=== PATIENT | female | born 1980 | race African-American/Black ===

== ENCOUNTER 2017-06-29 14:23 | Emergency (ER) | payer SELFPAY ==
--- NOTE | 2017-06-29 15:35 | ER Document Report ---
HPI - HPI Pain Level: 3 Notes: Patient is a 37-year-old female who presents to the ED complaining of left first MTP joint pain that radiates up her foot and occasionally up to her leg 3 weeks. Patient states that she has pain with palpation and with ambulation. Patient has not noticed any redness or bruising. She is not aware of any previous injury. She has tried some [id number] meds with minimal relief. She denies any history of gout. Pain described as sharp/ache. Denies any headache, fever, URI, sore throat, chest pain, palpitations, syncope, cough, shortness of breath, wheeze, dyspnea, abdominal pain, nausea/vomiting/diarrhea, urinary retention, dysuria, hematuria, loss of control of bowel or bladder, numbness/tingling, muscle paralysis/weakness, or rash. - ROS Notes: REVIEW OF SYSTEMS: CONSTITUTIONAL : Denies fever, chills, or sweats. Denies recent illness. EENT: Denies eye, ear, throat, or mouth pain or symptoms. Denies nasal or sinus congestion or discharge. Denies throat, tongue, or mouth swelling or difficulty swallowing. CARDIOVASCULAR: Denies chest pain. Denies palpitations or racing or irregular heart beat. Denies ankle edema. RESPIRATORY: Denies cough, cold, or chest congestion. Denies shortness of breath, difficulty breathing, or wheezing. GASTROINTESTINAL: Denies abdominal pain or distention. Denies nausea, vomiting , or diarrhea. Denies blood in vomitus, stools, or per rectum. Denies black, tarry stools. Denies constipation. GENITOURINARY: Denies difficulty urinating, painful urination, burning, frequency, blood in urine, or discharge. MUSCULOSKELETAL: see hpi SKIN: Denies rash, lesions or sores. NEUROLOGICAL: Denies confusion or altered mental status. Denies passing out or loss of consciousness. Denies dizziness or lightheadedness. Denies headache. Denies problems with gait or speech. Denies sensory loss, numbness, or tingling. Denies seizures. ALL OTHER SYSTEMS REVIEWED AND NEGATIVE. Dictation was performed using [employer] voice recognition software - EENT EENT: DENIES: Sore Throat, Ear Pain, Eye problems - NEURO Neurology: DENIES: Headache - CARDIOVASCULAR Cardiovascular: DENIES: Chest pain - RESPIRATORY Respiratory: DENIES: Trouble Breathing, Coughing - GASTROINTESTINAL Gastrointestinal: DENIES: Abdominal Pain, Black / Bloody Stools - URINARY Urinary: DENIES: Dysuria, Urgency, Frequency - REPRODUCTIVE Reproductive: DENIES: : - MUSCULOSKELETAL Musculoskeletal: REPORTS: Extremity pain - numbness in left foot Past Medical History - Social History Smoking Status: Never Smoker Chew tobacco use (# tins/day): No Frequency of alcohol use: None Drug Abuse: None Family History: Reviewed & Not Pertinent Patient has suicidal ideation: No Patient has homicidal ideation: No - Past Medical History Cardiac Medical History: Reports: Hx Hypertension Renal/ Medical History: Denies: Hx Peritoneal Dialysis Past Surgical History: Reports: Hx Section - x3, Hx Cholecystectomy - Immunizations Immunizations up to date: Yes Hx Diphtheria, Pertussis, Tetanus Vaccination: Yes Vertical Provider Document - CONSTITUTIONAL Agree With Documented VS: Yes Notes: PHYSICAL EXAMINATION: GENERAL: Well-appearing, well-nourished and in no acute distress. LUNGS: Breath sounds clear to auscultation bilaterally and equal. No wheezes rales or rhonchi. HEART: Regular rate and rhythm without murmurs, rubs, gallops. Musculoskeletal: Left foot: FROM to passive/active. Strength 5+/5. + mild swelling/bunion to the 1st MTP joint. + tenderness to palp. N/V intact. Achilles intact. Ligamentous stable. No other bony tenderness. Yusra negative. No calf swelling or erythema. Extremities: No cyanosis, clubbing, or edema b/l. Peripheral pulses 2+. Capillary refill less than 3 seconds. NEUROLOGICAL: Normal speech, normal gait. Normal sensory, motor exams PSYCH: Normal mood, normal affect. SKIN: Warm, Dry, normal turgor, no rashes or lesions noted. - INFECTION CONTROL TRAVEL OUTSIDE OF THE [place] IN LAST 30 DAYS: No Course - Re-evaluation Re-evalutation: 06/29/17 16:15 Patient is an afebrile, well-hydrated, 37-year-old female who presents the ED with left first MTP joint pain, suspect inflammatory/bunion. Vitals are stable. PE is otherwise unremarkable for any neurovascular compromise, obvious tendon/ligament rupture, obvious fracture/dislocation, septic joint. X-ray was unremarkable for any acute pathology. I will send her home with a prescription for a steroid taper dose. Conservative measures for symptoms. Recheck with your PCM in 3-5 days. Consider consult with podiatry/orthopedics. Return to the ED with any worsening/concerning symptoms otherwise as reviewed discharge. Patient is in agreement. Discharge - Discharge Clinical Impression: Foot pain, left Condition: Stable Disposition: HOME, SELF-CARE Instructions: Exercises for the Foot Muscles ([facility]) Additional Instructions: Rest, Ice, Compression, Elevation Tylenol/ibuprofen as needed Light stretches daily Strength exercises as able Moist heat and massage may help F/u with your PCP in 3-5 days for a recheck Consider consult(s) with Orthopedics/podiatry for ongoing/worsening symptoms Return to the ED with any worsening symptoms and/or development of fever, headache, chest pain, palpitations, syncope, shortness of breath, trouble breathing, abdominal pain, n/v/d, muscle weakness/paralysis, numbness/tingling, swelling, redness, or other worsening symptoms that are concerning to you. Prescriptions: Prednisone [Deltasone 10 mg Tablet] 10 mg PO ASDIR PRN #21 tablet PRN Reason: Forms: Elevated Blood Pressure Referrals: [facility] [Provider Group] - Follow up as needed
--- NOTE | 2017-06-29 16:08 | RADIOLOGY REPORT (SQ) ---
EXAM DESCRIPTION: FOOT LEFT COMPLETE COMPLETED DATE/TIME: 06/29/2017 4:01 pm REASON FOR STUDY: left 1st MTP joint pain COMPARISON: None. NUMBER OF VIEWS: Three views. TECHNIQUE: AP, lateral and oblique without weight bearing radiographic images acquired of the left f oot. LIMITATIONS: None. FINDINGS: MINERALIZATION: Normal. BONES: No acute fracture or dislocation. No worrisome bone lesions. No significant osteophytes. JOINTS: No erosions. No laura-articular osteopenia. No chondrocalcinosis. SOFT TISSUES: No swelling. No calcifications. OTHER: No other significant finding. IMPRESSION: NEGATIVE STUDY OF THE LEFT FOOT. NO EXPLANATION FOR PAIN. TECHNICAL DOCUMENTATION: JOB ID: [id number] [employer]- All Rights Reserved
[2017-06-29 16:32] VITALS: BP 132/75
== END 2017-06-29 16:32 | disposition home or self-care (01) ==
LOC: ER 14:23
DX: M79.672 Pain in left foot (principal); M79.675 Pain in left toe(s); M79.605 Pain in left leg
CPT/HCPCS: 99283

== ENCOUNTER 2017-07-23 07:31 | Inpatient (IN) | payer SELFPAY ==
[2017-07-23] MEDS ORDERED: ONDANSETRON HCL INJ/PF 4 MG/2 ML SDV IV ONE ×2 (07:47→19:00)
[2017-07-23] MEDS ORDERED: MORPHINE SULFATE 10 MG/ML INJ IV ONE ×2 (07:47→08:43)
[2017-07-23] MEDS ORDERED: NORMAL SALINE 1000 ML 1,000 ML IV ONE (07:47)
--- NOTE | 2017-07-23 07:48 | ER Document Report ---
ED GI/ - General Chief Complaint: Possible Kidney Stone Stated Complaint: FLANK PAIN Time Seen by Provider: 07/23/17 07:44 Mode of Arrival: Ambulatory Information source: Patient Notes: Patient is a 37-year-old female who presents to the ER today for right upper quadrant abdominal pain/right flank pain that began 3 hours ago. She admits to multiple episodes of nausea and vomiting. She denies diarrhea. Patient has a history of kidney stones and states that that is what this feels like to her. She denies any pain prior to this but admits to about 2 weeks of urinary frequency. She denies any history of pancreatitis, states that she does not have her gallbladder any longer. She denies fevers or chills. TRAVEL OUTSIDE OF THE [place] IN LAST 30 DAYS: No - Related Data Allergies/Adverse Reactions: No Known Allergies Allergy (Verified 07/23/17 07:31) Past Medical History - General Information source: Patient - Social History Smoking Status: Unknown if Ever Smoked Family History: Reviewed & Not Pertinent - Past Medical History Cardiac Medical History: Reports: Hx Hypertension Renal/ Medical History: Denies: Hx Peritoneal Dialysis Past Surgical History: Reports: Hx Section - x3, Hx Cholecystectomy - Immunizations Immunizations up to date: Yes Hx Diphtheria, Pertussis, Tetanus Vaccination: Yes Review of Systems - Review of Systems Constitutional: No symptoms reported EENT: No symptoms reported Cardiovascular: No symptoms reported Respiratory: No symptoms reported Gastrointestinal: See HPI Genitourinary: See HPI Female Genitourinary: No symptoms reported Musculoskeletal: No symptoms reported Skin: No symptoms reported Hematologic/Lymphatic: No symptoms reported Neurological/Psychological: No symptoms reported Physical Exam - Vital signs Vitals: Temp Pulse Resp BP Pulse Ox 98.8 F 94 22 H 132/98 H 99 07/23/17 07:35 07/23/17 07:35 07/23/17 07:35 07/23/17 07:35 07/23/17 07:35 - Notes Notes: PHYSICAL EXAMINATION: GENERAL: Obviously uncomfortable, holding emesis bag, but in no acute distress. HEAD: Atraumatic, normocephalic. EYES: Pupils equal round and reactive to light, extraocular movements intact, sclera anicteric, conjunctiva are normal. NECK: Normal range of motion, supple without lymphadenopathy LUNGS: CTAB and equal. No wheezes rales or rhonchi. HEART: Regular rate and rhythm without murmurs ABDOMEN: Soft, epigastric, right upper quadrant, right sided tenderness. No guarding, no rebound BACK: no vertebral tenderness, normal ROM GI/: no CVA tenderness EXTREMITIES: Normal range of motion, no pitting edema. No cyanosis. NEUROLOGICAL: Cranial nerves grossly intact. Normal sensory/motor exams. PSYCH: Normal mood, normal affect. SKIN: Warm, Dry, normal turgor, no rashes or lesions noted Course - Re-evaluation Re-evalutation: 07/23/17 13:11 Lab work shows a lipase of 1100, liver enzymes normal, normal white blood cell count, patient feels better after pain medication and nausea medication, IV fluids. CAT scan reports no acute pathology including kidney stone, right upper quadrant ultrasound reports that patient has no gallbladder and nothing else abnormal on ultrasound. At this time patient has required multiple doses of pain medication frequently for comfort. Dr. Reid, hospitalist agrees to admission at this time with very elevated lipase. Patient denies any alcohol use and has never had pancreatitis before. - Vital Signs Vital signs: Temp Pulse Resp BP Pulse Ox 97.4 F 74 17 114/89 H 100 07/23/17 12:21 07/23/17 12:21 07/23/17 12:21 07/23/17 12:21 07/23/17 12:21 - Laboratory Result Diagrams: 07/23/17 07:47 07/23/17 07:47 Laboratory results interpreted by me: 07/23/17 07/23/17 07:47 07:47 RDW 14.2 H Chloride 108 H Alkaline Phosphatase 165 H Lipase 1124.7 H Discharge - Discharge Clinical Impression: Pancreatitis Qualifiers: Chronicity: acute Pancreatitis type: unspecified pancreatitis type Acute pancreatitis complication: unspecified Qualified Code(s): K85.90 - Acute pancreatitis without necrosis or infection, unspecified Condition: Stable Disposition: ADMITTED INPATIENT Admitting Provider: Hospitalist Unit Admitted: Medical Floor
[2017-07-23 08:17] LABS: HEMATOCRIT 41.2 % (36.0-47.0); HEMOGLOBIN 13.5 g/dL (12.0-15.5); MEAN CORPUSCULAR HGB CONC 32.9 g/dL (32.0-36.0); MEAN CORPUSCULAR VOLUME 91 fl (80-97); PLATELET COUNT 390 10^3/uL (150-450); RED BLOOD COUNT 4.51 10^6/uL (3.72-5.28); RED CELL DISTRIBUTION WIDTH 14.2 % (11.5-14.0); WHITE BLOOD COUNT 6.3 10^3/uL (4.0-10.5)
[2017-07-23 08:23] LABS: ALANINE AMINOTRANSFERASE 19 U/L (9-52); ALBUMIN 3.8 g/dL (3.5-5.0); ALKALINE PHOSPHATASE 165 U/L (38-126); ANION GAP 7 (5-19); ASPARTATE AMINO TRANSFERASE 19 U/L (14-36); BILIRUBIN,DIRECT 0.2 mg/dL (0.0-0.4); BILIRUBIN,TOTAL 0.5 mg/dL (0.2-1.3); BLOOD UREA NITROGEN 13 mg/dL (7-20); CALCIUM 9.6 mg/dL (8.4-10.2); CARBON DIOXIDE 24 mmol/L (22-30); CHLORIDE 108 mmol/L (98-107); GLUCOSE 90 mg/dL (75-110); LIPASE 1124.7 U/L (23-300); POTASSIUM 4.4 mmol/L (3.6-5.0); SODIUM 139.2 mmol/L (137-145); TOTAL PROTEIN 6.6 g/dL (6.3-8.2)
[2017-07-23 08:38] LABS: ABSOLUTE LYMPHOCYTES# (MANUAL) 2.5 10^3/uL (0.5-4.7); ABSOLUTE MONOCYTES # (MANUAL) 0.6 10^3/uL (0.1-1.4); BASOPHILS % (MANUAL) 0 % (0-2); EOSINOPHILS % (MANUAL) 3 % (0-6); LYMPHOCYTES % (MANUAL) 34 % (13-45); MONOCYTES % (MANUAL) 10 % (3-13); SEGMENTED NEUTROPHILS % (MAN) 47 % (42-78); TOTAL CELLS COUNTED 100
[2017-07-23 08:40] LABS: HYPOCHROMASIA SLIGHT; PLATELET COMMENT ADEQUATE; POLYCHROMASIA SLIGHT
[2017-07-23] MEDS ORDERED: KETOROLAC TROMETHAMINE INJ/PF 30 MG/1 ML SDV IV ONE (08:43)
[2017-07-23 09:20] LABS: APPEARANCE,URINE CLEAR; BILIRUBIN,URINE NEGATIVE (NEGATIVE); COLOR,URINE STRAW; GLUCOSE, URINE NEGATIVE (NEGATIVE); KETONES,URINE NEGATIVE (NEGATIVE); LEUKOCYTE ESTERASE,URINE NEGATIVE (NEGATIVE); NITRITE,URINE NEGATIVE (NEGATIVE); PROTEIN,URINE NEGATIVE (NEGATIVE); URINE SPECIFIC GRAVITY 1.009; UROBILINOGEN,URINE NEGATIVE mg/dL (<2.0)
--- NOTE | 2017-07-23 09:51 | RADIOLOGY REPORT (SQ) ---
EXAM DESCRIPTION: CT LTD RENAL STONE PROTOCOL ON COMPLETED DATE/TIME: 07/23/2017 9:39 am REASON FOR STUDY: flank pain COMPARISON: 01/23/2016 TECHNIQUE: CT scan of the abdomen and pelvis performed without intravenous or oral contrast. Images reviewed with lung, soft tissue, and bone windows. Reconstructed coronal and sagittal MPR images revi ewed. All images stored on PACS. All CT scanners at this facility use dose modulation, iterative reconstruction, and/or weight based d osing when appropriate to reduce radiation dose to as low as reasonably achievable (ALARA). [facility]: Dose Right [facility]: CareDose [facility]: Dose Right [facility]: Teradose 4D [facility]: Smart [place] RADIATION DOSE: CT Rad equipment meets quality standard of care and radiation dose reduction techniq ues were employed. CTDIvol: 9.5 mGy. DLP: 472 mGy-cm.mGy. LIMITATIONS: None. FINDINGS: LOWER CHEST: No significant findings. No nodules or infiltrates. NON-CONTRASTED LIVER, SPLEEN, ADRENALS: Evaluation limited by lack of IV contrast. No identified sign ificant masses. PANCREAS: No masses. No peripancreatic inflammatory changes. GALLBLADDER: No identified stones by CT criteria. No inflammatory changes to suggest cholecystitis. RIGHT KIDNEY AND URETER: No suspicious masses. Assessment limited by lack of IV contrast. No signif icant calcifications. No hydronephrosis or hydroureter. LEFT KIDNEY AND URETER: No suspicious masses. Assessment limited by lack of IV contrast. No signifi cant calcifications. No hydronephrosis or hydroureter. AORTA AND RETROPERITONEUM: No aneurysm. No retroperitoneal masses or adenopathy. BOWEL AND PERITONEAL CAVITY: No obvious masses or inflammatory changes. No free fluid. APPENDIX: Normal. PELVIS, BLADDER, AND ABDOMINAL WALL:Dominant follicles both ovaries. No abnormal masses. No free flu id. Bladder normal. BONES: No significant findings. OTHER: No other significant finding. IMPRESSION: NO SIGNIFICANT OR ACUTE PROCESS IN THE ABDOMEN OR PELVIS. COMMENT: Quality ID # [id number]: Final reports with documentation of one or more dose reduction techniques (e.g., Automated exposure control, adjustment of the mA and/or kV according to patient size, use of iterative reconstruction technique) TECHNICAL DOCUMENTATION: JOB ID: [id number] [employer]- All Rights Reserved
--- NOTE | 2017-07-23 11:06 | RADIOLOGY REPORT (SQ) ---
EXAM DESCRIPTION: U/S ABDOMEN LIMITED W/O DOP COMPLETED DATE/TIME: 07/23/2017 10:55 am REASON FOR STUDY: ruq pain, lipase elevated COMPARISON: CT PERFORMED EARLIER ON THE SAME DAY. TECHNIQUE: Dynamic and static grayscale images acquired of the abdomen and recorded on PACS. Additio nal selected color Doppler and spectral images recorded. LIMITATIONS: None. FINDINGS: PANCREAS: No masses. Visualized pancreatic duct normal caliber. LIVER: No masses. Echotexture normal. LIVER VASCULATURE: Normal directional flow of the main portal vein and hepatic veins. GALLBLADDER: Surgically absent. ULTRASOUND-DETECTED PETERSON'S SIGN: Negative. INTRAHEPATIC DUCTS AND COMMON DUCT: CBD and intrahepatic ducts normal caliber. No filling defects. INFERIOR VENA CAVA: Normal flow. AORTA: No aneurysm. RIGHT KIDNEY: Normal size. Normal echogenicity. No solid or suspicious masses. No hydronephrosis. No calcifications. PERITONEAL AND RIGHT PLEURAL SPACE: No ascites or effusions. OTHER: No other significant findings. IMPRESSION: Unremarkable right upper quadrant ultrasound status post cholecystectomy. No significan t change from preceding CT. TECHNICAL DOCUMENTATION: JOB ID: [id number] [employer]- All Rights Reserved
[2017-07-23] MEDS ORDERED: ACETAMINOPHEN 325 MG TABLET PO PRN (11:27)
[2017-07-23] MEDS ORDERED: IPRATROPIUM/ALBUTEROL 0.5-2.5 MG/3 ML AMPUL NEB PRN (11:27)
[2017-07-23] MEDS ORDERED: ONDANSETRON 4 MG TAB.RAPDIS PO PRN (11:27)
--- NOTE | 2017-07-23 12:01 | PDOC H&P ---
History of Present Illness Admission Date/PCP: July 23, 2017. She has no primary care doctor. Patient complains of: Right flank pain along with left upper quadrant abdominal pain. History of Present Illness: NARAYAN LUJAN is a 37 year old female Past Medical History Cardiac Medical History: Reports: Hypertension Pulmonary Medical History: Reports: None EENT Medical History: Reports: None Neurological Medical History: Reports: None Endocrine Medical History: Reports: None Renal/ Medical History: Reports: Nephrolithiasis Malignancy Medical History: Reports: None GI Medical History: Reports: None Musculoskeltal Medical History: Reports: None Skin Medical History: Reports: None Psychiatric Medical History: Reports: None Traumatic Medical History: Reports: None Hematology: Reports: None Infectious Medical History: Reports: None Past Surgical History Past Surgical History: Reports: Section - x3, Cholecystectomy Social History Information Source: Patient Lives with: Family Smoking Status: Never Smoker Frequency of Alcohol Use: Rare Hx Recreational Drug Use: No Drugs: None Hx Prescription Drug Abuse: No - Advance Directive Resuscitation Status: Full Code Family History Family History: Mother 60 alive and has lupus. Father at age 63 from complications of chronic renal failure. Parental Family History Reviewed: Yes Children Family History Reviewed: No Sibling(s) Family History Reviewed.: No Medication/Allergy Home Medications: Metoprolol Tartrate [Lopressor] 25 mg PO BID 03/23/15 Hydrocodone/Acetaminophen [[place] 5-325 mg Tablet] 1 tab PO Q6H PRN #10 tablet Phenol/Sodium Phenolate [Chloraseptic Sore Throat [place] 177 ml] 2 sprays MM Q2HP PRN #1 bottle 03/27/15 Prednisone [Deltasone 10 mg Tablet] 10 mg PO ASDIR PRN #21 tablet 03/27/15 Promethazine HCl [Phenergan 25 mg Tablet] 25 mg PO Q6H PRN #15 tablet 06/07/15 Azithromycin [Zithromax 250 mg Tablet] 250 mg PO ASDIR PRN #6 tablet 10/20/15 Ibuprofen [Motrin 600 mg Tablet] 600 mg PO Q8HP PRN #60 tablet 10/20/15 Prednisone [Deltasone 20 mg Tablet] 3 tab PO DAILY 5 Days tablet 10/20/15 Hydrocodone/Acetaminophen [[place] 5-325 mg Tablet] 1 tab PO Q4 PRN #20 tablet 07/ 23/16 Ondansetron [Zofran Odt 4 mg Tablet] 1 - 2 tab PO Q4HP PRN #30 tab.rapdis Tamsulosin HCl [Flomax 0.4 mg Cap.sr] 0.4 mg PO DAILY #7 cap.sr.24h 01/23/16 Prednisone [Deltasone 10 mg Tablet] 10 mg PO ASDIR PRN #21 tablet 06/29/17 Allergies/Adverse Reactions: No Known Allergies Allergy (Verified 07/23/17 07:31) Review of Systems Constitutional: ABSENT: chills, fever(s), headache(s), weight gain, weight loss Eyes: ABSENT: visual disturbances Ears: ABSENT: hearing changes Cardiovascular: ABSENT: chest pain, dyspnea on exertion, edema, orthropnea, palpitations Respiratory: ABSENT: cough, hemoptysis Gastrointestinal: PRESENT: abdominal pain, bloating, nausea, vomiting. ABSENT: coffee ground emesis, diarrhea, heartburn, melena Genitourinary: ABSENT: dysuria, hematuria Musculoskeletal: ABSENT: joint swelling Integumentary: ABSENT: rash, wounds Neurological: ABSENT: abnormal gait, abnormal speech, confusion, dizziness, focal weakness, syncope Psychiatric: ABSENT: anxiety, depression, homidical ideation, suicidal ideation Endocrine: ABSENT: cold intolerance, heat intolerance, polydipsia, polyuria Hematologic/Lymphatic: ABSENT: easy bleeding, easy bruising Physical Exam Vital Signs: Temp Pulse Resp BP Pulse Ox 98.8 F 94 22 H 132/98 H 99 07/23/17 07:35 07/23/17 07:35 07/23/17 07:35 07/23/17 07:35 07/23/17 07:35 Intake & Output 07/22/17 07/23/17 07/24/17 06:59 06:59 06:59 Weight 70.5 kg General appearance: PRESENT: no acute distress, well-developed, well-nourished Head exam: PRESENT: atraumatic, normocephalic Eye exam: PRESENT: conjunctiva pink, EOMI, PERRLA. ABSENT: scleral icterus Ear exam: PRESENT: normal external ear exam Mouth exam: PRESENT: moist, tongue midline Neck exam: ABSENT: carotid bruit, JVD, lymphadenopathy, thyromegaly Respiratory exam: PRESENT: clear to auscultation lee. ABSENT: rales, rhonchi, wheezes Cardiovascular exam: PRESENT: RRR. ABSENT: diastolic murmur, rubs, systolic murmur Pulses: PRESENT: normal dorsalis pedis pul GI/Abdominal exam: PRESENT: normal bowel sounds, soft, tenderness - Moderate left upper quadrant tenderness.. ABSENT: distended, guarding, mass, organolmegaly, rebound Rectal exam: PRESENT: deferred Extremities exam: ABSENT: calf tenderness, clubbing, pedal edema Neurological exam: PRESENT: alert, awake, oriented to person, oriented to place , oriented to time, oriented to situation, CN II-XII grossly intact. ABSENT: motor sensory deficit Psychiatric exam: PRESENT: appropriate affect Skin exam: PRESENT: dry, intact, warm. ABSENT: cyanosis, rash Results Laboratory Results: 07/23/17 07:47 07/23/17 07:47 07/23/17 07/23/17 07/23/17 07:47 07:47 08:35 WBC 6.3 RBC 4.51 Hgb 13.5 Hct 41.2 MCV 91 MCH 30.0 MCHC 32.9 RDW 14.2 H Plt Count 390 Seg Neutrophils % Not Reportable Lymphocytes % Not Reportable Monocytes % Not Reportable Eosinophils % Not Reportable Basophils % Not Reportable Absolute Neutrophils Not Reportable Absolute Lymphocytes Not Reportable Absolute Monocytes Not Reportable Absolute Eosinophils Not Reportable Absolute Basophils Not Reportable Sodium 139.2 Potassium 4.4 Chloride 108 H Carbon Dioxide 24 Anion Gap 7 BUN 13 Creatinine 1.00 Est GFR ( Amer) > 60 Est GFR (Non-Af Amer) > 60 Glucose 90 Calcium 9.6 Total Bilirubin 0.5 AST 19 ALT 19 Alkaline Phosphatase 165 H Total Protein 6.6 Albumin 3.8 Lipase 1124.7 H Urine Color STRAW Urine Appearance CLEAR Urine pH 6.0 Ur Specific [place] 1.009 Urine Protein NEGATIVE Urine Glucose (UA) NEGATIVE Urine Ketones NEGATIVE Urine Blood NEGATIVE Urine Nitrite NEGATIVE Ur Leukocyte Esterase NEGATIVE Urine RBC (Auto) 0 Impressions: Limited or Localized CT 07/23/17 07:48 IMPRESSION: NO SIGNIFICANT OR ACUTE PROCESS IN THE ABDOMEN OR PELVIS. Abdomen Ultrasound 07/23/17 10:08 IMPRESSION: Unremarkable right upper quadrant ultrasound status post cholecystectomy. No significant change from preceding CT. Assessment & Plan - Diagnosis (1) Pancreatitis Qualifiers: Chronicity: acute Pancreatitis type: unspecified pancreatitis type Acute pancreatitis complication: unspecified Qualified Code(s): K85.90 - Acute pancreatitis without necrosis or infection, unspecified Is this a current diagnosis for this admission?: Yes Plan: The etiology of her pancreatitis is unclear. She does not have any significant alcohol use. She has had her gallbladder removed and has essentially normal LFTs. Will check try glyceride levels in the morning. If the triglycerides are normal we will proceed with an MRCP if she continues to have symptoms. Will give IV fluids and IV narcotics. (2) Nephrolithiasis Is this a current diagnosis for this admission?: Yes Plan: She has a history of nephrolithiasis but has no hematuria and it is unlikely that any nephrolithiasis is the cause for the symptoms. - Time Time Spent: 50 to 70 Minutes - Inpatient Certification Medical Necessity: Need For IV Fluids, Need for Pain Control
[2017-07-23] MEDS: NORMAL SALINE 1000 ML 1,000 ML IV PRN ×3 (12:03→21:24)
[2017-07-23] MEDS: ONDANSETRON HCL INJ/PF 4 MG/2 ML SDV IV PRN ×2 (13:43→18:08)
[2017-07-23] MEDS: MORPHINE SULFATE 10 MG/ML INJ IV PRN (15:29)
[2017-07-23] MEDS: KETOROLAC TROMETHAMINE INJ/PF 30 MG/1 ML SDV IV PRN (20:24)
[2017-07-23] MEDS: FAMOTIDINE 20 MG TABLET PO SCH (21:22)
[2017-07-24] MEDS: MORPHINE SULFATE 10 MG/ML INJ IV PRN (00:21)
[2017-07-24] MEDS: ONDANSETRON HCL INJ/PF 4 MG/2 ML SDV IV PRN ×2 (00:21→12:36)
[2017-07-24] MEDS: KETOROLAC TROMETHAMINE INJ/PF 30 MG/1 ML SDV IV PRN (06:42)
[2017-07-24 08:25] LABS: HEMATOCRIT 42.1 % (36.0-47.0); HEMOGLOBIN 13.7 g/dL (12.0-15.5); MEAN CORPUSCULAR HGB CONC 32.6 g/dL (32.0-36.0); MEAN CORPUSCULAR VOLUME 92 fl (80-97); PLATELET COUNT 345 10^3/uL (150-450); RED BLOOD COUNT 4.59 10^6/uL (3.72-5.28); RED CELL DISTRIBUTION WIDTH 14.2 % (11.5-14.0)
[2017-07-24 08:42] LABS: ANION GAP 10 (5-19); BLOOD UREA NITROGEN 7 mg/dL (7-20); CALCIUM 8.8 mg/dL (8.4-10.2); CARBON DIOXIDE 22 mmol/L (22-30); CHLORIDE 108 mmol/L (98-107); CHOLESTEROL 257.76 mg/dL (0-200); GLUCOSE 74 mg/dL (75-110); LIPASE 133.4 U/L (23-300); POTASSIUM 4.2 mmol/L (3.6-5.0); SODIUM 139.6 mmol/L (137-145); TRIGLYCERIDES 95 mg/dL (<150)
[2017-07-24 08:53] LABS: DIRECT LDL 167 mg/dL (<100)
[2017-07-24 09:13] VITALS: BP 120/77
[2017-07-24] MEDS ORDERED: OXYCODONE HCL IR 5 MG TABLET PO PRN (09:50)
[2017-07-24] MEDS ORDERED: ENOXAPARIN SODIUM INJ 40 MG/0.4 ML DISP.SYRIN SUBCUT SCH (10:00)
[2017-07-24] MEDS: FAMOTIDINE 20 MG TABLET PO SCH (10:25)
--- NOTE | 2017-07-24 15:28 | PDOC DISCHARGE SUMMARY ---
General - Admit/Disc Date/PCP Admission Date/Primary Care Provider: 07/23/17 11:48 Discharge Date: 07/24/17 - Discharge Diagnosis (1) Pancreatitis Is this a current diagnosis for this admission?: Yes Summary: Possibly secondary to recent steroid use. (2) Nephrolithiasis Is this a current diagnosis for this admission?: Yes - Additional Information Resuscitation Status: Full Code Discharge Diet: Regular Discharge Activity: Activity As Tolerated Prescriptions: Ondansetron [Zofran Odt 4 mg Tablet] 4 mg PO Q6HP PRN #20 tab.rapdis PRN Reason: Oxycodone HCl [Oxy-Ir 5 mg Tablet] 5 mg PO Q6HP PRN #20 tablet PRN Reason: Home Medications: Ondansetron [Zofran Odt 4 mg Tablet] 4 mg PO Q6HP PRN #20 tab.rapdis 07/24/17 Oxycodone HCl [Oxy-Ir 5 mg Tablet] 5 mg PO Q6HP PRN #20 tablet 07/24/17 History of Present Illness History of Present Illness: NARAYAN LUJAN is a 37 year old female who presented with abdominal pain and was found to have pancreatitis. Patient does not drink alcohol and has had a cholecystectomy. She however has had a recent course of steroids. She is admitted for treatment of acute pancreatitis. Hospital Course Hospital Course: 37-year-old female who has a history of having nephrolithiasis who presented with right flank pain as well as left upper quadrant abdominal pain. She initially thought this was secondary to kidney stones and did not seek medical care. As the pain continue she came to the hospital and was found to have pancreatitis. Patient does not drink alcohol and has had a cholecystectomy. She marked liver function tests and did relate that she had a recent course of prednisone. It is felt that it was possibly steroids as the cause for her acute pancreatitis. She was made n.p.o. given IV fluids and IV narcotics. Patient had quick resolution of her pain. On the day of discharge she was given a diet was able to tolerate that with minimal pain. Because of this it was felt that she was stable to be discharged to home. Physical Exam Vital Signs: Temp Pulse Resp BP Pulse Ox 98.7 F 67 18 120/77 100 07/24/17 15:08 07/24/17 15:08 07/24/17 15:08 07/24/17 08:31 07/24/17 15:08 Intake & Output 07/23/17 07/24/17 07/25/17 06:59 06:59 06:59 Intake Total 0 Balance 0 Weight 71.6 kg General appearance: PRESENT: no acute distress Eye exam: PRESENT: conjunctiva pink. ABSENT: scleral icterus Mouth exam: PRESENT: moist, tongue midline Neck exam: ABSENT: JVD Respiratory exam: PRESENT: clear to auscultation lee. ABSENT: rales, rhonchi, wheezes Cardiovascular exam: PRESENT: RRR. ABSENT: diastolic murmur, rubs, systolic murmur GI/Abdominal exam: PRESENT: normal bowel sounds, soft. ABSENT: distended, guarding, mass, organolmegaly, rebound, tenderness Extremities exam: ABSENT: calf tenderness, clubbing, pedal edema Neurological exam: PRESENT: alert, awake, oriented to person, oriented to place , oriented to time, oriented to situation, CN II-XII grossly intact. ABSENT: motor sensory deficit Psychiatric exam: PRESENT: appropriate affect Skin exam: PRESENT: dry, intact, warm. ABSENT: cyanosis, rash Results Laboratory Results: 07/24/17 08:10 07/24/17 08:10 07/24/17 07/24/17 08:10 08:10 WBC 6.0 RBC 4.59 Hgb 13.7 Hct 42.1 MCV 92 MCH 30.0 MCHC 32.6 RDW 14.2 H Plt Count 345 Sodium 139.6 Potassium 4.2 Chloride 108 H Carbon Dioxide 22 Anion Gap 10 BUN 7 Creatinine 0.91 Est GFR ( Amer) > 60 Est GFR (Non-Af Amer) > 60 Glucose 74 L Calcium 8.8 Triglycerides 95 Cholesterol 257.76 H LDL Cholesterol Direct 167 H VLDL Cholesterol 19.0 HDL Cholesterol 66 Lipase 133.4 Impressions: Limited or Localized CT 07/23/17 07:48 IMPRESSION: NO SIGNIFICANT OR ACUTE PROCESS IN THE ABDOMEN OR PELVIS. Abdomen Ultrasound 07/23/17 10:08 IMPRESSION: Unremarkable right upper quadrant ultrasound status post cholecystectomy. No significant change from preceding CT. Qualifiers PATEINT BEING DISCHARGED WITH ANY OF THE FOLLOWING DIAGNOSIS?: No Plan Discharge Plan: Patient will follow up with her primary care in 2 weeks. Patient is discharged home in stable condition. Time Spent: Less than 30 Minutes
== END 2017-07-24 16:54 | disposition home or self-care (01) | DRG 440 ==
LOC: ER 07:31 → EH 11:48 → 2N 14:35
PROVIDERS: ADMIT Internal Medicine; ATTEND Internal Medicine
DX: K85.90 Acute pancreatitis without necrosis or infection, unspecified (principal); N20.0 Calculus of kidney; I10 Essential (primary) hypertension; Z79.52 Long term (current) use of systemic steroids; Z79.899 Other long term (current) drug therapy
CPT/HCPCS: 36415; 76380; 76705; 80048; 80053; 80061; 81001; 81025; 83690; 85025; 85027; 96361; 96374; 96375; 96376; 99285; J1650; J1885; J2270; J2405; J7030

== ENCOUNTER 2017-07-31 08:45 | Emergency (ER) | payer SELFPAY ==
[2017-07-31] MEDS ORDERED: ONDANSETRON 4 MG TAB.RAPDIS PO ONE (09:32)
[2017-07-31] MEDS ORDERED: NORMAL SALINE 1000 ML 1,000 ML IV ONE (09:32)
[2017-07-31] MEDS ORDERED: MORPHINE SULFATE 10 MG/ML INJ IV ONE (09:32)
--- NOTE | 2017-07-31 09:33 | ER Document Report ---
ED General - General Chief Complaint: Back Pain Stated Complaint: FLANK PAIN Time Seen by Provider: 07/31/17 09:19 Notes: 37-year-old lady presents with 6 hours of severe upper abdominal pain radiating to the back, with nausea but no vomiting. No diarrhea. Pain is similar to prior pancreatitis. She was discharged last week after admission for pancreatitis. She does not have a gallbladder. She denies being told to do a liquid diet but is taking pain meds at home. Chest pain. TRAVEL OUTSIDE OF THE [place] IN LAST 30 DAYS: No - Related Data Allergies/Adverse Reactions: No Known Allergies Allergy (Verified 07/31/17 08:48) Past Medical History - General Information source: Patient - Social History Smoking Status: Unknown if Ever Smoked Family History: Reviewed & Not Pertinent - Past Medical History Cardiac Medical History: Reports: Hx Hypertension Renal/ Medical History: Denies: Hx Peritoneal Dialysis Past Surgical History: Reports: Hx Section - x3, Hx Cholecystectomy - Immunizations Immunizations up to date: Yes Hx Diphtheria, Pertussis, Tetanus Vaccination: Yes Review of Systems - Review of Systems Notes: REVIEW OF SYSTEMS GEN: Denies fever, chills, weight loss ENT: Denies sore throat, nasal discharge, ear pain EYES: Denies blurry vision, eye pain, discharge CV: Denies chest pain, palpitations, edema RESP: Denies cough, shortness of breath, wheezing GI: Abdominal pain and nausea MSK: Denies joint pain/swelling, edema, SKIN: Denies rash, skin lesions LYMPH: Denies swollen glands/lymph nodes NEURO: Denies headache, focal weakness or numbness, dizziness PSYCH: Denies depression, suicidal or homicidal ideation PHYSICAL EXAMINATION General: Appears in pain. Tearful. Head: Atraumatic, normocephalic ENT: Mouth normal, oropharynx moist, no exudates or tonsillar enlargement Eyes: Conjunctiva normal, pupils equal, lids normal Neck: No JVD, supple, no guarding CVS: Normal rate, regular rhythm, no murmurs Resp: No resp distress, equal and normal breath sounds bilaterally GI: Nondistended, soft, minimal upper abdominal tenderness to palpation, no rebound or guarding Ext: No deformities, no edema, normal range of motion in upper and lower ext Back: No CVA or midline TTP Skin: No rash, warm Lymphatic: No lymphadeopathy noted Neuro: Awake, alert. Face symmetric. GCS 15. Physical Exam - Vital signs Vitals: Temp Pulse Resp BP Pulse Ox 98.8 F 117 H 23 H 123/82 99 07/31/17 08:51 07/31/17 08:51 07/31/17 08:51 07/31/17 08:51 07/31/17 08:51 Course - Re-evaluation Re-evalutation: 07/31/17 09:33 37-year-old lady with recurrent upper abdominal pain concerning for repeat pancreatitis. Doubt gallstone pancreatitis given that she has no gallbladder. We will treat with morphine and fluids, check labs including lipase. 07/31/17 09:52 Reviewing the patient's chart, she had a negative CT and ultrasound done on her last admission, which was 8 days ago. Her pancreatitis was thought due to steroid use and she has now stopped using steroids. 07/31/17 12:37 His labs show a lipase of 600. She peaked over thousand and was at the 100 range when discharged. I think she is flaring up because of diet noncompliance. She has a repeat exam done which was nontender and she felt much better after round of medicine and some fluids. We discussed outpatient management of pancreatitis including narcotic pain relievers Zofran and p.o. hydration. I discussed in detail a liquid diet for her. She will follow up with her primary care and is comfortable going home. Insert discharge I have discussed with the patient there likely diagnosis, aftercare plan, follow-up plans and my usual and customary return precautions. They verbalized understanding of this. - Vital Signs Vital signs: Temp Pulse Resp BP Pulse Ox 98.8 F 117 H 17 108/56 L 97 07/31/17 08:51 07/31/17 08:51 07/31/17 11:01 07/31/17 11:00 07/31/17 11:01 - Laboratory Result Diagrams: 07/31/17 10:34 Laboratory results interpreted by me: 07/31/17 07/31/17 07/31/17 09:48 10:34 10:34 RDW 14.1 H ALT 96 H Alkaline Phosphatase 174 H Creatine Kinase 183 H Lipase 601.7 H Urine Blood MODERATE H Discharge - Discharge Clinical Impression: Pancreatitis Qualifiers: Chronicity: acute Pancreatitis type: unspecified pancreatitis type Acute pancreatitis complication: unspecified Qualified Code(s): K85.90 - Acute pancreatitis without necrosis or infection, unspecified Condition: Good Disposition: HOME, SELF-CARE Instructions: Oral Narcotic Medication ([facility]) Additional Instructions: You have been diagnosed with pancreatitis. Please follow a liquid diet. Please take meds as prescribed. Please follow-up with Dr. Willis as scheduled. If you get worse pain or vomiting please return to the ER. Prescriptions: Ondansetron HCl [Zofran 4 mg Tablet] 1 - 2 tab PO Q4H PRN #10 tablet PRN Reason: Oxycodone HCl/Acetaminophen [Percocet 5-325 mg Tablet] 1 - 2 tab PO Q4H PRN #15 tablet PRN Reason:
[2017-07-31 10:15] LABS: APPEARANCE,URINE SLIGHTLY-CLOUDY; BILIRUBIN,URINE NEGATIVE (NEGATIVE); COLOR,URINE YELLOW; GLUCOSE, URINE NEGATIVE (NEGATIVE); KETONES,URINE NEGATIVE (NEGATIVE); LEUKOCYTE ESTERASE,URINE NEGATIVE (NEGATIVE); NITRITE,URINE NEGATIVE (NEGATIVE); PROTEIN,URINE NEGATIVE (NEGATIVE); URINE SPECIFIC GRAVITY 1.013; UROBILINOGEN,URINE NEGATIVE mg/dL (<2.0)
[2017-07-31 10:57] LABS: ABSOLUTE LYMPHOCYTES (AUTO) 1.6 10^3/uL (0.5-4.7); ABSOLUTE MONOCYTES (AUTO) 0.4 10^3/uL (0.1-1.4); ABSOLUTE NEUT (AUTO) 2.3 10^3/uL (1.7-8.2); BASOPHILS % (AUTO) 0.1 % (0-2); EOSINOPHILS % (AUTO) 0.7 % (0-6); HEMATOCRIT 38.6 % (36.0-47.0); HEMOGLOBIN 12.9 g/dL (12.0-15.5); LYMPHOCYTES % (AUTO) 35.4 % (13-45); MEAN CORPUSCULAR HEMOGLOBIN 30.3 pg (27.0-33.4); MEAN CORPUSCULAR HGB CONC 33.5 g/dL (32.0-36.0); MEAN CORPUSCULAR VOLUME 90 fl (80-97); MONOCYTES % (AUTO) 10.2 % (3-13); PLATELET COUNT 382 10^3/uL (150-450); RED BLOOD COUNT 4.28 10^6/uL (3.72-5.28); RED CELL DISTRIBUTION WIDTH 14.1 % (11.5-14.0); SEGMENTED NEUTROPHILS % (AUTO) 53.6 % (42-78); TOTAL CELLS COUNTED % (AUTO) 100 %; WHITE BLOOD COUNT 4.4 10^3/uL (4.0-10.5)
[2017-07-31 11:15] LABS: ALANINE AMINOTRANSFERASE 96 U/L (9-52); ALBUMIN 3.8 g/dL (3.5-5.0); ALKALINE PHOSPHATASE 174 U/L (38-126); ASPARTATE AMINO TRANSFERASE 36 U/L (14-36); BILIRUBIN,DIRECT 0.2 mg/dL (0.0-0.4); BILIRUBIN,TOTAL 0.4 mg/dL (0.2-1.3); CREATINE KINASE 183 U/L (30-135); LIPASE 601.7 U/L (23-300); TOTAL PROTEIN 6.7 g/dL (6.3-8.2)
--- NOTE | 2017-07-31 12:52 | EKG REPORT ---
SEVERITY:- BORDERLINE ECG - SINUS TACHYCARDIA WITH IRREGULAR RATE 87-117 : Confirmed by: Lior Trujillo MD 31-Jul-2017 12:51:13
[2017-07-31 13:12] VITALS: BP 130/71
== END 2017-07-31 13:12 | disposition home or self-care (01) ==
LOC: ER 08:45
DX: K85.90 Acute pancreatitis without necrosis or infection, unspecified (principal); R10.10 Upper abdominal pain, unspecified; R11.0 Nausea; I10 Essential (primary) hypertension; Z90.49 Acquired absence of other specified parts of digestive tract
CPT/HCPCS: 93005; 99284; 96361; 96374; 36415; 82550; 83690; 85025; 81025; 80076; 81001; 93010; S0119; J2270; J7030

== ENCOUNTER 2018-01-31 06:36 | Emergency (ER) | payer SELFPAY ==
--- NOTE | 2018-01-31 07:15 | ER Document Report ---
ED General - General Chief Complaint: Headache Stated Complaint: HEADACHE Time Seen by Provider: 01/31/18 07:14 Mode of Arrival: Ambulatory Information source: Patient TRAVEL OUTSIDE OF THE [place] IN LAST 30 DAYS: No - HPI Onset: Other - x 1 month Onset/Duration: Intermittent Quality of pain: Throbbing Severity: Moderate Pain Level: 3 Associated symptoms: Headache Similar symptoms previously: Yes Recently seen / treated by doctor: No Notes: 37-year-old female presents to the ED with complaints of tension headache for the last month. States worse in the morning. Change in level consciousness or neuro changes. Patient is renting an apartment, denies having carbon monoxide detectors. States headache feels exactly similar to her previous headaches, denies any photophobia or phonophobia. 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 Denies fevers, chills, chest pain, palpitations, shortness of breath, dyspnea, nausea, vomiting, diarrhea, abdominal pain, hematuria,blurred vision, double vision, loss of vision, speech changes, LH, dizziness, syncope, wheezing, ST, URI, neck pain, weakness, bowel or bladder dysfunction, saddle anesthesia, numbness or tingling in bilateral upper or lower extremities equally, muscle paralysis, weakness in bilateral upper or lower extremities equally or rash. Denies IV drug use. - Related Data Allergies/Adverse Reactions: No Known Allergies Allergy (Verified 01/31/18 06:56) Past Medical History - Social History Smoking Status: Never Smoker Chew tobacco use (# tins/day): No Frequency of alcohol use: None Drug Abuse: None Family History: Reviewed & Not Pertinent Patient has suicidal ideation: No Patient has homicidal ideation: No - Past Medical History Cardiac Medical History: Reports: Hx Hypertension Neurological Medical History: Reports: Hx Migraine Renal/ Medical History: Denies: Hx Peritoneal Dialysis Past Surgical History: Reports: Hx Section - x3, Hx Cholecystectomy - Immunizations Immunizations up to date: Yes Hx Diphtheria, Pertussis, Tetanus Vaccination: Yes Physical Exam - Vital signs Vitals: Temp Pulse Resp BP Pulse Ox 98.1 F 85 16 128/97 H 97 01/31/18 06:44 01/31/18 06:44 01/31/18 06:44 01/31/18 06:44 01/31/18 06:44 - Notes Notes: PHYSICAL EXAMINATION: GENERAL: Well-appearing, well-nourished and in no acute distress. HEAD: Atraumatic, normocephalic. EYES: Pupils equal round and reactive to light, extraocular movements intact, conjunctiva are normal. ENT: Nares patent, oropharynx clear without exudates. Moist mucous membranes. NECK: Normal range of motion, supple without lymphadenopathy LUNGS: Breath sounds clear to auscultation bilaterally and equal. No wheezes rales or rhonchi. HEART: Regular rate and rhythm without murmurs ABDOMEN: Soft, nontender, nondistended abdomen. No guarding, no rebound. No masses appreciated. Female : deferred Musculoskeletal: Normal range of motion, no pitting or edema. No cyanosis. NEUROLOGICAL: PERRLA, EOMI. Full motor and sensory function throughout. Proofsheet Corrector + 2 equal bilaterally in BUE. Tongue midline. No pronator drift. No ataxia. Neck with APROM. Raises eyebrows. Strength is 5 out of 5 in bilateral upper and lower extremities equally.Speaks in full sentences. No weakness on one side. Romberg gait steady able to walk straight line. Able to recall 5 objects. PSYCH: Normal mood, normal affect. SKIN: Warm, Dry, normal turgor, no rashes or lesions noted. Course - Re-evaluation Re-evalutation: 01/31/18 07:34 Headache 1 month, worse in the morning. 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 CBC negative for leukocytosis or anemia. CMP negative for renal or hepatic dysfunction. Patient reports her headache is completely gone away with migraine cocktail. Discussed stress reducing techniques. Patient states her headache is 0 out of 10. Presentation of a headache that appears to be most consistent with tension versus migrainous type headache. Headache was not maximal in onset, patient has no focal neurologic deficits, no nuchal rigidity, vital signs within normal limits, no papilledema, and patient is overall well in appearance. Based on clinical history and examination I do not suspect an acute subarachnoid hemorrhage, dural venous sinus thrombosis, acute meningitis, or intercranial mass. Given my low clinical suspicion for any acute life-threatening etiology, I do not feel advanced neuro imaging or laboratory testing is indicated at this time. Will proceed with headache cocktail and reassess. - Vital Signs Vital signs: Temp Pulse Resp BP Pulse Ox 98.1 F 85 16 128/97 H 97 01/31/18 06:44 01/31/18 06:44 01/31/18 06:44 01/31/18 06:44 01/31/18 06:44 - Laboratory Result Diagrams: 01/31/18 07:50 01/31/18 07:50 Laboratory results interpreted by me: 01/31/18 01/31/18 07:50 07:50 RDW 14.3 H Alkaline Phosphatase 148 H Discharge - Discharge Clinical Impression: Headache Qualifiers: Headache type: tension-type Headache chronicity pattern: unspecified pattern Intractability: intractable Qualified Code(s): G44.201 - Tension-type headache, unspecified, intractable Condition: Stable Instructions: Headache ([facility]), Intravenous Compazine for Headaches ([facility]), Use of Diphenhydramine Additional Instructions: You have been seen in the Emergency Department (ED) for a headache. All of your lab work was normal. Please use Tylenol (acetaminophen) or Motrin ( ibuprofen) as needed for symptoms, but only as written on the box. As we have discussed, please follow up with your primary care doctor as soon as possible regarding today's ED visit and your headache symptoms. Call your doctor or return to the ED if you have a worsening headache, sudden and severe headache, confusion, slurred speech, facial droop, weakness or numbness in any arm or leg, extreme fatigue, or other symptoms that concern you. Headache The physician does not feel that the headache you are experiencing has a serious underlying cause. Most headaches are due to emotional stress, with resultant muscle tension (tension headache). Occasionally, headaches are secondary to changes in the blood vessels of the scalp (vascular headache and migraine headache). Sometimes, a headache is the first symptom of another developing illness, such as a viral infection. You have no evidence of stroke, bleeding, meningitis, or other serious cause of your headache. The treatment of headaches varies with the severity and cause of the pain. Not all headaches need pain shots. In fact, there is evidence that using narcotics for headaches may make them worse in the long run. The physician will determine the therapy that's in your best interest. If you develop a fever, if the headache is different from any you've previously experienced, or if the headache progressively worsens, then call your physician at once or go to the emergency room. Return immediately for any new or worsening symptoms. Follow up with primary care provider, call tomorrow to make followup appointment. Forms: Return to Work Referrals: MALU ABARCA MD [NO LOCAL MD] - Follow up in 3-5 days
[2018-01-31] MEDS ORDERED: NORMAL SALINE 1000 ML 1,000 ML IV PRN (07:32)
[2018-01-31] MEDS ORDERED: METOCLOPRAMIDE HCL INJ/PF 10 MG/2 ML SDV IV ONE (07:32)
[2018-01-31] MEDS ORDERED: KETOROLAC TROMETHAMINE INJ/PF 30 MG/1 ML SDV IV ONE (07:32)
[2018-01-31] MEDS ORDERED: PROCHLORPERAZINE EDISYLATE INJ 10 MG/2 ML VIAL IV ONE (07:33)
[2018-01-31 08:15] LABS: ABSOLUTE BASOPHILS # (AUTO) 0.1 10^3/uL (0.0-0.2); ABSOLUTE LYMPHOCYTES (AUTO) 1.8 10^3/uL (0.5-4.7); ABSOLUTE MONOCYTES (AUTO) 0.5 10^3/uL (0.1-1.4); BASOPHILS % (AUTO) 1.4 % (0-2); EOSINOPHILS % (AUTO) 0.9 % (0-6); HEMATOCRIT 42.7 % (36.0-47.0); HEMOGLOBIN 14.3 g/dL (12.0-15.5); MEAN CORPUSCULAR HEMOGLOBIN 30.3 pg (27.0-33.4); MEAN CORPUSCULAR HGB CONC 33.4 g/dL (32.0-36.0); MEAN CORPUSCULAR VOLUME 91 fl (80-97); MONOCYTES % (AUTO) 9.8 % (3-13); PLATELET COUNT 379 10^3/uL (150-450); RED BLOOD COUNT 4.71 10^6/uL (3.72-5.28); RED CELL DISTRIBUTION WIDTH 14.3 % (11.5-14.0); SEGMENTED NEUTROPHILS % (AUTO) 54.9 % (42-78); TOTAL CELLS COUNTED % (AUTO) 100 %; WHITE BLOOD COUNT 5.5 10^3/uL (4.0-10.5)
[2018-01-31 08:39] LABS: ALANINE AMINOTRANSFERASE 16 U/L (9-52); ALKALINE PHOSPHATASE 148 U/L (38-126); ANION GAP 10 (5-19); ASPARTATE AMINO TRANSFERASE 35 U/L (14-36); BILIRUBIN,DIRECT 0.3 mg/dL (0.0-0.4); BILIRUBIN,TOTAL 0.6 mg/dL (0.2-1.3); BLOOD UREA NITROGEN 11 mg/dL (7-20); CALCIUM 9.1 mg/dL (8.4-10.2); CARBON DIOXIDE 27 mmol/L (22-30); CHLORIDE 107 mmol/L (98-107); GLUCOSE 93 mg/dL (75-110); POTASSIUM 4.4 mmol/L (3.6-5.0); SODIUM 143.6 mmol/L (137-145); TOTAL PROTEIN 8.1 g/dL (6.3-8.2)
[2018-01-31 10:38] VITALS: BP 141/85
== END 2018-01-31 10:37 | disposition home or self-care (01) ==
LOC: ER 06:36
DX: G44.201 Tension-type headache, unspecified, intractable (principal); I10 Essential (primary) hypertension
CPT/HCPCS: 99284; 96361; 96374; 96375; 36415; 82375; 85025; 80053; J1885; J0780; J7030

== ENCOUNTER 2018-04-20 11:39 | Emergency (ER) | payer SELFPAY ==
[2018-04-20 11:43] VITALS: BP 141/118
--- NOTE | 2018-04-20 11:57 | ER Document Report ---
HPI - HPI Patient complains to provider of: Sore throat Onset: Other - Monday Onset/Duration: Persistent Quality of pain: Achy Pain Level: 2 Context: Patient presents the emergency department with complaints of sore throat since Monday. Patient reports she is taken Tylenol cold medicine without relief of symptoms. Patient reports feeling hot and cold but denies fever vomiting diarrhea. No exposure to strep as far she knows. Patient reports she works at [employer]. She reports she is been eating and drinking without problems. Associated Symptoms: None Exacerbated by: Denies Relieved by: Denies Similar symptoms previously: No Recently seen / treated by doctor: No - REPRODUCTIVE Reproductive: DENIES: : Past Medical History - General Information source: Patient Last Menstrual Period: 04 06 18 - Social History Smoking Status: Unknown if Ever Smoked Cigarette use (# per day): No Frequency of alcohol use: None Drug Abuse: None Occupation: [employer] Lives with: Family Family History: Reviewed & Not Pertinent Patient has suicidal ideation: No Patient has homicidal ideation: No - Past Medical History Cardiac Medical History: Reports: Hx Hypertension Neurological Medical History: Reports: Hx Migraine Renal/ Medical History: Denies: Hx Peritoneal Dialysis GI Medical History: Reports: Hx Pancreatitis Past Surgical History: Reports: Hx Section - x3, Hx Cholecystectomy - Immunizations Immunizations up to date: Yes Hx Diphtheria, Pertussis, Tetanus Vaccination: Yes Vertical Provider Document - CONSTITUTIONAL Agree With Documented VS: Yes Exam Limitations: No Limitations General Appearance: WD/WN, No Apparent Distress - INFECTION CONTROL TRAVEL OUTSIDE OF THE [place] IN LAST 30 DAYS: No - HEENT HEENT: Atraumatic, Normocephalic, Pharyngeal Erythema - Good airway no tonsillar exudate, swallows without problem, no peritonsillar abscess. negative : Conjuctival Injection, Pharyngeal Exudate, Pharyngeal Tenderness, Tympanic Membrane Red, Tympanic Membrane Bulging - NECK Neck: Normal Inspection, Supple, Lymphadenopathy-Left, Lymphadenopathy-Right - RESPIRATORY Respiratory: Breath Sounds Normal, No Respiratory Distress - CARDIOVASCULAR Cardiovascular: Regular Rate, Regular Rhythm - GI/ABDOMEN Gastrointestinal: Abdomen Soft, Abdomen Non-Tender - MUSCULOSKELETAL/EXTREMETIES Musculoskeletal/Extremeties: EUGENIO PETTIT - NEURO Level of Consciousness: Awake, Alert, Appropriate - DERM Integumentary: Warm, Dry, No Rash Course - Re-evaluation Re-evalutation: 04/20/18 13:23 pt instructed on neg strep, culture pending, treatment plan. pt has high blood pressure, no symptoms, denies headache, chest pain. reports she does not take anything for her high blood pressure. Patient was instructed on risk of high blood pressure and possible outcomes to include stroke heart attack kidney failure. Patient was instructed on the importance of follow-up with a primary care provider to monitor her blood pressure. She was instructed on measures that she could take to lower her blood pressure to include diet and exercise. She verbalized understanding to all instructions. Dictation of this chart was performed using voice recognition software; therefore, there may be some unintended grammatical errors. - Vital Signs Vital signs: Temp Pulse Resp BP Pulse Ox 98.3 F 98 18 141/118 H 98 04/20/18 11:42 04/20/18 11:42 04/20/18 11:42 04/20/18 11:42 04/20/18 11:42 Discharge - Discharge Clinical Impression: Sore throat Condition: Stable Disposition: HOME, SELF-CARE Instructions: Sore Throat ([facility]) Additional Instructions: *You have been evaluated for a sore throat, *Your rapid strep was negative, A throat culture is pending, you will be contacted should you need antibiotics. *Warm salt water gargles and throat lozenges for comfort *Do not let anyone drink/eat after you *Good hand washing *Follow-up with a primary care provider within one week for recheck *Return to ED for worsening condition change, needs, trouble swallowing, concerns Forms: Elevated Blood Pressure
== END 2018-04-20 13:25 | disposition home or self-care (01) ==
LOC: ER 11:39
DX: J02.9 Acute pharyngitis, unspecified (principal); I10 Essential (primary) hypertension
CPT/HCPCS: 87070; 87880; 99283

== ENCOUNTER 2018-06-28 20:38 | Emergency (ER) | payer SELFPAY ==
[2018-06-28] MEDS ORDERED: ASPIRIN 81 MG TABLET, CHEWABLE PO ONE (22:01)
--- NOTE | 2018-06-28 22:03 | ER Document Report ---
ED Medical Screen ([facility]ME) - General Chief Complaint: Palpitations Stated Complaint: RAPID HEARTBEAT,DIFFICULTY BREATHING Time Seen by Provider: 06/28/18 22:00 Notes: 38-year-old female with chief complaint of pain across her left chest and pain w ith deep breaths, she also states that she just feels generally achy and poor since yesterday. She is currently on her menstrual cycle and states she frequently feels this way when she is on her menstrual cycle, she has one every 15 days she reports. She denies abdominal pain/vomiting. Past medical history of C-sections, denies anemia, smoking, recreational drugs, cardiac history, family cardiac history. TRAVEL OUTSIDE OF THE [place] IN LAST 30 DAYS: No - Related Data Allergies/Adverse Reactions: No Known Allergies Allergy (Verified 04/20/18 11:39) Past Medical History - Past Medical History Cardiac Medical History: Reports: Hx Hypertension Neurological Medical History: Reports: Hx Migraine Renal/ Medical History: Denies: Hx Peritoneal Dialysis GI Medical History: Reports: Hx Pancreatitis Past Surgical History: Reports: Hx Section - x3, Hx Cholecystectomy - Immunizations Immunizations up to date: Yes Hx Diphtheria, Pertussis, Tetanus Vaccination: Yes History of Influenza Vaccine for 04/2017 - 08/2017 Season: Refused Physical Exam - Vital signs Vitals: Temp Pulse Resp BP Pulse Ox 99.3 F 92 17 146/83 H 98 06/28/18 20:58 06/28/18 20:58 06/28/18 20:58 06/28/18 20:58 06/28/18 20:58 - Respiratory Respiratory status: No respiratory distress Breath sounds: Normal. No: Decreased air movement, Wheezing - Cardiovascular Rhythm: Regular. No: Tachycardia Heart sounds: Normal auscultation, S1 appreciated, S2 appreciated Course - Vital Signs Vital signs: Temp Pulse Resp BP Pulse Ox 99.3 F 92 17 146/83 H 98 06/28/18 20:58 06/28/18 20:58 06/28/18 20:58 06/28/18 20:58 06/28/18 20:58
--- NOTE | 2018-06-28 22:30 | RADIOLOGY REPORT (SQ) ---
EXAM DESCRIPTION: XR CHEST 1 VIEW COMPLETED DATE/TME: 06/28/2018 22:00 CLINICAL HISTORY: 38 years, Female, chest pain COMPARISON: 10/19/2015 chest NUMBER OF VIEWS: 1 TECHNIQUE: Frontal view chest LIMITATIONS: None. FINDINGS: Heart size is normal. Lungs are clear. No pneumothorax IMPRESSION: Negative chest copyright 2010 [employer]- All Rights Reserved
[2018-06-28 22:40] LABS: ABSOLUTE BASOPHILS # (AUTO) 0.1 10^3/uL (0.0-0.2); ABSOLUTE LYMPHOCYTES (AUTO) 2.3 10^3/uL (0.5-4.7); ABSOLUTE MONOCYTES (AUTO) 0.6 10^3/uL (0.1-1.4); ABSOLUTE NEUT (AUTO) 3.2 10^3/uL (1.7-8.2); BASOPHILS % (AUTO) 1.4 % (0-2); EOSINOPHILS % (AUTO) 0.7 % (0-6); HEMATOCRIT 39.6 % (36.0-47.0); HEMOGLOBIN 13.2 g/dL (12.0-15.5); LYMPHOCYTES % (AUTO) 37.2 % (13-45); MEAN CORPUSCULAR HEMOGLOBIN 30.5 pg (27.0-33.4); MEAN CORPUSCULAR HGB CONC 33.5 g/dL (32.0-36.0); MEAN CORPUSCULAR VOLUME 91 fl (80-97); MONOCYTES % (AUTO) 9.7 % (3-13); PLATELET COUNT 357 10^3/uL (150-450); RED BLOOD COUNT 4.34 10^6/uL (3.72-5.28); RED CELL DISTRIBUTION WIDTH 14.8 % (11.5-14.0); TOTAL CELLS COUNTED % (AUTO) 100 %; WHITE BLOOD COUNT 6.2 10^3/uL (4.0-10.5)
--- NOTE | 2018-06-28 22:49 | ER Document Report ---
ED General - General Chief Complaint: Palpitations Stated Complaint: RAPID HEARTBEAT,DIFFICULTY BREATHING Time Seen by Provider: 06/28/18 22:00 Notes: Patient is a 38-year-old female that presents to the emergency department for chief complaint of palpitations. Patient reports that she started having palpitations yesterday, she is been getting this with her last several menstrual cycles, which seem to be getting closer together. They are occurring approximately every 15 days for the last 3 cycles. She has been having palpitations associated with it, and shortness of breath. She denies having any chest pain, but feels a pounding in her chest. She denies any lightheadedness, or syncopal episodes, denies any nausea, vomiting, diaphoresis, abdominal pain, dysuria or hematuria. She is otherwise healthy, no history of cardiac disease, no family history of blood clots, she is not on any blood thinners. Past Medical History: Denies chronic medical conditions Past Surgical History: x3, cholecystectomy Social History: Denies tobacco, alcohol or drug use. Family History: Reviewed and noncontributory for presenting illness Allergies: Reviewed, see documented allergy list. REVIEW OF SYSTEMS: Other than noted above, the 12 point review of systems was reviewed with the patient and were negative, all pertinent findings are included in the HPI. PHYSICAL EXAMINATION: Vital signs reviewed, nursing noted reviewed. GENERAL: Well-appearing, well-nourished and in no acute distress. HEAD: Atraumatic, normocephalic. EYES: Eyes appear normal, extraocular movements intact, sclera anicteric, conjunctiva are normal. ENT: nares patent, oropharynx clear without exudates. Moist mucous membranes. NECK: Normal range of motion, supple without lymphadenopathy LUNGS: Breath sounds clear to auscultation bilaterally and equal. No wheezes rales or rhonchi. HEART: Regular rate and rhythm without murmurs ABDOMEN: Soft, nontender, normoactive bowel sounds. No rebound, guarding, or rigidity. No masses appreciated. EXTREMITIES: Nontender, good range of motion, no pitting or edema. NEUROLOGICAL: No focal neurological deficits. Moves all extremities spontaneously Motor and sensory grossly intact on exam. PSYCH: Normal mood, normal affect. SKIN: Warm, Dry, normal turgor, no rashes or lesions noted on exposed skin TRAVEL OUTSIDE OF THE [place] IN LAST 30 DAYS: No - Related Data Allergies/Adverse Reactions: No Known Allergies Allergy (Verified 04/20/18 11:39) Past Medical History - Social History Smoking Status: Never Smoker Family History: Reviewed & Not Pertinent - Past Medical History Cardiac Medical History: Reports: Hx Hypertension Neurological Medical History: Reports: Hx Migraine Renal/ Medical History: Denies: Hx Peritoneal Dialysis GI Medical History: Reports: Hx Pancreatitis Past Surgical History: Reports: Hx Section - x3, Hx Cholecystectomy - Immunizations Immunizations up to date: Yes Hx Diphtheria, Pertussis, Tetanus Vaccination: Yes Physical Exam - Vital signs Vitals: Temp Pulse Resp BP Pulse Ox 99.3 F 92 17 146/83 H 98 06/28/18 20:58 06/28/18 20:58 06/28/18 20:58 06/28/18 20:58 06/28/18 20:58 Course - Re-evaluation Re-evalutation: Patient seen and examined vital signs reviewed. Laboratory data and imaging were ordered as appropriate for the patient's presenting symptoms and complaint, with consideration of any critical or life threatening conditions that may be associated with their obtained history and exam as noted above. Patient was treated with aspirin by triage provider Results were reviewed when available and demonstrated negative d-dimer, negative troponin, blood work is otherwise unremarkable. The patient was re-evaluated and was stable, asymptomatic Evaluation was most consistent with palpitations, possibly related to the patient's changing in mental cycle patterns, advised follow-up with FUEL AGENT as she is having increased bleeding and frequency of her menstrual periods Results were discussed with the patient at this point, after careful consideration I feel that that patient can be discharged from the emergency d epartment, the patient was educated treatments and reasons to return to the emergency department based on their presumed diagnosis as noted above, they were advised to followup with a primary care physician in 2-3 days. Patient was agreeable to plan of care. *Note is created using voice recognition software and may contain spelling, syntax or grammatical errors. Laboratory 06/28/18 06/28/18 06/28/18 22:29 22:29 22:29 WBC 6.2 RBC 4.34 Hgb 13.2 Hct 39.6 MCV 91 MCH 30.5 MCHC 33.5 RDW 14.8 H Plt Count 357 Seg Neutrophils % 51.0 Lymphocytes % 37.2 Monocytes % 9.7 Eosinophils % 0.7 Basophils % 1.4 Absolute Neutrophils 3.2 Absolute Lymphocytes 2.3 Absolute Monocytes 0.6 Absolute Eosinophils 0.0 Absolute Basophils 0.1 D-Dimer Sodium 139.1 Potassium 3.9 Chloride 109 H Carbon Dioxide 24 Anion Gap 6 BUN 13 Creatinine 0.90 Est GFR ( Amer) > 60 Est GFR (Non-Af Amer) > 60 Glucose 102 Calcium 8.6 Total Bilirubin 0.6 Direct Bilirubin 0.3 Neonat Total Bilirubin Not Reportable Neonat Direct Bilirubin Not Reportable Neonat Indirect Bili Not Reportable AST 35 ALT 6 L Alkaline Phosphatase 162 H Troponin I Total Protein 7.3 Albumin 3.9 Serum HCG, Qual NEGATIVE 06/28/18 06/28/18 22:29 22:29 WBC RBC Hgb Hct MCV MCH MCHC RDW Plt Count Seg Neutrophils % Lymphocytes % Monocytes % Eosinophils % Basophils % Absolute Neutrophils Absolute Lymphocytes Absolute Monocytes Absolute Eosinophils Absolute Basophils D-Dimer 0.32 Sodium Potassium Chloride Carbon Dioxide Anion Gap BUN Creatinine Est GFR ( Amer) Est GFR (Non-Af Amer) Glucose Calcium Total Bilirubin Direct Bilirubin Neonat Total Bilirubin Neonat Direct Bilirubin Neonat Indirect Bili AST ALT Alkaline Phosphatase Troponin I < 0.012 Total Protein Albumin Serum HCG, Qual Chest X-Ray 06/28/18 22:00 IMPRESSION: Negative chest copyright 2011 [employer]- All Rights Reserved - Vital Signs Vital signs: Temp Pulse Resp BP Pulse Ox 98.5 F 92 14 123/83 100 06/29/18 00:01 06/28/18 20:58 06/29/18 00:01 06/29/18 00:01 06/29/18 00:01 - Laboratory Result Diagrams: 06/28/18 22:29 06/28/18 22:29 Laboratory results interpreted by me: 06/28/18 06/28/18 22:29 22:29 RDW 14.8 H Chloride 109 H ALT 6 L Alkaline Phosphatase 162 H - EKG Interpretation by Me Additional EKG results interpreted by me: EKG demonstrates sinus rhythm with a ventricular rate of 85 bpm, normal axis, normal intervals, no evidence of acute ischemia on this EKG, this is compared with prior EKG from 07/31/2017, without significant change. Discharge - Discharge Clinical Impression: Palpitations Condition: Stable Disposition: HOME, SELF-CARE Instructions: Palpitations (Irregular or Rapid Heartrate) ([facility]) Additional Instructions: Please follow-up with a erosion control specialist regarding your change in menstrual cycles, I also provided a heavy duty diesel mechanic to follow-up with. Referrals: TONNY PORTER MD [ACTIVE STAFF] - Follow up in 3-5 days [facility] [Provider Group] - Follow up in 3-5 days
[2018-06-28 22:58] LABS: ALANINE AMINOTRANSFERASE 6 U/L (9-52); ALBUMIN 3.9 g/dL (3.5-5.0); ALKALINE PHOSPHATASE 162 U/L (38-126); ANION GAP 6 (5-19); ASPARTATE AMINO TRANSFERASE 35 U/L (14-36); BILIRUBIN,DIRECT 0.3 mg/dL (0.0-0.4); BILIRUBIN,TOTAL 0.6 mg/dL (0.2-1.3); BLOOD UREA NITROGEN 13 mg/dL (7-20); CALCIUM 8.6 mg/dL (8.4-10.2); CARBON DIOXIDE 24 mmol/L (22-30); CHLORIDE 109 mmol/L (98-107); GLUCOSE 102 mg/dL (75-110); POTASSIUM 3.9 mmol/L (3.6-5.0); SODIUM 139.1 mmol/L (137-145); TOTAL PROTEIN 7.3 g/dL (6.3-8.2)
[2018-06-29 00:09] VITALS: BP 123/83
--- NOTE | 2018-06-29 14:58 | EKG REPORT ---
SEVERITY:- NORMAL ECG - SINUS RHYTHM : Confirmed by: Ambar Guerra 29-Jun-2018 14:58:00
== END 2018-06-29 00:15 | disposition home or self-care (01) ==
LOC: ER 20:38
DX: R00.2 Palpitations (principal); I10 Essential (primary) hypertension
CPT/HCPCS: 36415; 71045; 80053; 84484; 84703; 85025; 85379; 93005; 93010; 99285

== ENCOUNTER 2018-10-21 14:19 | Emergency (ER) | payer SELFPAY ==
[2018-10-21] MEDS ORDERED: HYDROCODONE/ACETAMINOPHEN 5-325 MG TABLET PO ONE (14:47)
[2018-10-21] MEDS ORDERED: ONDANSETRON 4 MG TAB.RAPDIS PO ONE (14:47)
--- NOTE | 2018-10-21 14:48 | ER Document Report ---
ED Medical Screen (RME) - General Chief Complaint: Pelvic Pain Stated Complaint: ABDOMINAL PAIN, LEG PAIN Time Seen by Provider: 10/21/18 14:45 Mode of Arrival: Ambulatory Information source: Patient Notes: Patient presents complaining of lower pelvic pain for the past 4 days that worsened today. Patient does complain of some urinary frequency. Patient reports nausea and vomiting x2 episodes. Patient denies any fever. Patient does report having pelvic pain with her menstrual cycle which is currently on at this time. I have greeted and performed a rapid initial assessment of this patient. A comprehensive ED assessment and evaluation of the patient, analysis of test results and completion of the medical decision making process will be conducted by additional ED providers. TRAVEL OUTSIDE OF THE [place] IN LAST 30 DAYS: No - Related Data Allergies/Adverse Reactions: No Known Allergies Allergy (Verified 10/21/18 14:21) Past Medical History - Social History Chew tobacco use (# tins/day): No Frequency of alcohol use: None Drug Abuse: None - Past Medical History Cardiac Medical History: Reports: Hx Hypertension Neurological Medical History: Reports: Hx Migraine Renal/ Medical History: Denies: Hx Peritoneal Dialysis GI Medical History: Reports: Hx Pancreatitis Past Surgical History: Reports: Hx Section - x3, Hx Cholecystectomy - Immunizations Immunizations up to date: Yes Hx Diphtheria, Pertussis, Tetanus Vaccination: Yes History of Influenza Vaccine for 04/2017 - 08/2017 Season: Refused Physical Exam - Vital signs Vitals: Temp Pulse Resp BP Pulse Ox 98.3 F 91 16 151/89 H 99 10/21/18 14:26 10/21/18 14:10/21/18 14:10/21/18 14:10/21/18 14:26 - Abdominal Tenderness: Tender - Lower pelvic Course - Vital Signs Vital signs: Temp Pulse Resp BP Pulse Ox 98.3 F 91 16 151/89 H 99 10/21/18 14:26 10/21/18 14:26 10/21/18 14:26 10/21/18 14:26 10/21/18 14:26
[2018-10-21 15:12] LABS: APPEARANCE,URINE CLEAR; BILIRUBIN,URINE NEGATIVE (NEGATIVE); COLOR,URINE YELLOW; GLUCOSE, URINE NEGATIVE (NEGATIVE); HEMOGLOBIN 13.6 g/dL (12.0-15.5); KETONES,URINE NEGATIVE (NEGATIVE); LEUKOCYTE ESTERASE,URINE NEGATIVE (NEGATIVE); MEAN CORPUSCULAR HEMOGLOBIN 30.3 pg (27.0-33.4); MEAN CORPUSCULAR HGB CONC 33.2 g/dL (32.0-36.0); MEAN CORPUSCULAR VOLUME 91 fl (80-97); NITRITE,URINE NEGATIVE (NEGATIVE); PLATELET COUNT 339 10^3/uL (150-450); PROTEIN,URINE NEGATIVE (NEGATIVE); RED BLOOD COUNT 4.49 10^6/uL (3.72-5.28); RED CELL DISTRIBUTION WIDTH 14.3 % (11.5-14.0); UROBILINOGEN,URINE NEGATIVE mg/dL (<2.0); WHITE BLOOD COUNT 6.3 10^3/uL (4.0-10.5)
[2018-10-21 15:26] LABS: ALANINE AMINOTRANSFERASE 23 U/L (9-52); ALBUMIN 4.1 g/dL (3.5-5.0); ALKALINE PHOSPHATASE 153 U/L (38-126); ANION GAP 7 (5-19); ASPARTATE AMINO TRANSFERASE 26 U/L (14-36); BILIRUBIN,DIRECT 0.3 mg/dL (0.0-0.4); BILIRUBIN,TOTAL 0.5 mg/dL (0.2-1.3); BLOOD UREA NITROGEN 13 mg/dL (7-20); CALCIUM 9.9 mg/dL (8.4-10.2); CARBON DIOXIDE 26 mmol/L (22-30); CHLORIDE 108 mmol/L (98-107); SODIUM 140.9 mmol/L (137-145); TOTAL PROTEIN 7.9 g/dL (6.3-8.2)
[2018-10-21 15:29] LABS: GLUCOSE 66 mg/dL (75-110)
[2018-10-21] MEDS ORDERED: DEXTROSE 50%-WATER 25 GM/50 ML DISP.SYRIN IV ONE (15:34)
[2018-10-21 15:38] LABS: ABSOLUTE LYMPHOCYTES# (MANUAL) 2.5 10^3/uL (0.5-4.7); ABSOLUTE MONOCYTES # (MANUAL) 0.6 10^3/uL (0.1-1.4); ABSOLUTE NEUTROPHILS# (MANUAL) 3.2 10^3/uL (1.7-8.2); BASOPHILS % (MANUAL) 0 % (0-2); EOSINOPHILS % (MANUAL) 1 % (0-6); LYMPHOCYTES % (MANUAL) 39 % (13-45); MONOCYTES % (MANUAL) 9 % (3-13); SEGMENTED NEUTROPHILS % (MAN) 51 % (42-78); TOTAL CELLS COUNTED 100
[2018-10-21 15:40] LABS: ANISOCYTOSIS SLIGHT; PLATELET COMMENT ADEQUATE; PLATELET LARGE PRESENT
[2018-10-21] MEDS ORDERED: DEXTROSE 5%-NORMAL SALINE 1,000 ML IV ONE (15:40)
--- NOTE | 2018-10-21 15:54 | RADIOLOGY REPORT (SQ) ---
EXAM DESCRIPTION: U/S NON OB PEL TV W/DOPPLER COMPLETED DATE/TIME: 10/21/2018 3:40 pm REASON FOR STUDY: pelvic pain COMPARISON: None. TECHNIQUE: Dynamic and static grayscale images acquired of the pelvis via transvaginal approach and recorded on PACS. Additional selected color Doppler and spectral images recorded. LIMITATIONS: None. FINDINGS: UTERUS: Contour normal. No mass. ENDOMETRIAL STRIPE: No focal or generalized thickening. No masses. CERVIX: No nabothian cysts. RIGHT OVARY AND DOPPLER: Normal vascular flow. 4.6 cm cyst. LEFT OVARY AND DOPPLER: Normal vascular flow. 2.7 cm cyst. FREE FLUID: None noted. OTHER: No other significant finding. MEASUREMENTS: UTERUS: 8.6 cm ENDOMETRIAL STRIPE: 3.7 mm RIGHT OVARY: 4.4 cm LEFT OVARY: 4.0 cm IMPRESSION: Bilateral ovarian cysts. The largest is 4.6 cm on the right. COMMENT: No follow-up imaging is recommended. For ovarian cysts Reference: US BPRs based on Radiology 2010 Mar;256(3):943-54; CT/MR BPRs based on J Am Stevie Radiol 20 13;10:675-681. TECHNICAL DOCUMENTATION: JOB ID: [id number] [employer]- All Rights Reserved Rev Reading location - IP/workstation name: [email or web address]
[2018-10-21 16:41] LABS: CHLAM PCR NOT DETECTED (NOT DETECT); GON PCR NOT DETECTED (NOT DETECT)
[2018-10-21] MEDS ORDERED: KETOROLAC TROMETHAMINE INJ/PF 30 MG/1 ML SDV IV ONE (16:59)
--- NOTE | 2018-10-21 17:40 | ER Document Report ---
ED General - General Chief Complaint: Pelvic Pain Stated Complaint: ABDOMINAL PAIN, LEG PAIN Time Seen by Provider: 10/21/18 14:45 Mode of Arrival: Ambulatory Information source: Patient, Relative Notes: 38-year-old female with hypertension, recurrent ovarian cyst, remote history of pancreatitis presents with lower abdominal pain that started 2 days prior to arrival. Patient describes the pain as cramping, pressure. She denies dysuria, vaginal discharge, hematuria but does report urinary frequency. Patient had 2 episodes of nausea and vomiting yesterday. She is currently on her menstrual cycle. She denies tobacco or alcohol use. TRAVEL OUTSIDE OF THE [place] IN LAST 30 DAYS: No - HPI Onset: Other Onset/Duration: Persistent Quality of pain: Cramping Severity: Moderate Associated symptoms: Nausea, Vomiting, Other - Abdominal pain Exacerbated by: Denies Relieved by: Denies Similar symptoms previously: Yes Recently seen / treated by doctor: Yes - Related Data Allergies/Adverse Reactions: No Known Allergies Allergy (Verified 10/21/18 14:21) Past Medical History - General Information source: Patient - Social History Smoking Status: Never Smoker Chew tobacco use (# tins/day): No Frequency of alcohol use: None Drug Abuse: None Lives with: Family Family History: Reviewed & Not Pertinent Patient has suicidal ideation: No Patient has homicidal ideation: No - Past Medical History Cardiac Medical History: Reports: Hx Hypertension Neurological Medical History: Reports: Hx Migraine Renal/ Medical History: Denies: Hx Peritoneal Dialysis GI Medical History: Reports: Hx Pancreatitis Past Surgical History: Reports: Hx Section - x3, Hx Cholecystectomy - Immunizations Immunizations up to date: Yes Hx Diphtheria, Pertussis, Tetanus Vaccination: Yes Review of Systems - Review of Systems Notes: REVIEW OF SYSTEMS: CONSTITUTIONAL : Denies fever, chills, or sweats. Denies recent illness. Denies weight loss, recent hospitalizations. EENT: Denies visual changes, eye pain. Denies sore throat, oral lesions, di fficulty swallowing. CARDIOVASCULAR: Denies chest pain. Denies palpitations. Denies lower extremity edema. RESPIRATORY: Denies cough. Denies shortness of breath, wheezing. GASTROINTESTINAL: Denies abdominal distention. Denies diarrhea. Denies blood in vomitus, stools, or per rectum. Denies black, tarry stools. Denies constipation. GENITOURINARY: Denies difficulty urinating, painful urination, blood in urine, or vaginal discharge. MUSCULOSKELETAL: Denies back or neck pain or stiffness. Denies joint pain or swelling. SKIN: Denies rash, lesions or sores. HEMATOLOGIC : Denies easy bruising or bleeding. LYMPHATIC: Denies swollen glands. NEUROLOGICAL: Denies confusion or altered mental status. Denies loss of consciousness. Denies dizziness or lightheadedness. Denies headache. Denies weakness or paralysis. Denies problems difficulty with ambulation, slurred speech. Denies sensory loss, numbness, or tingling. Denies seizures. PSYCHIATRIC: Denies anxiety or stress. Denies depression, suicidal ideation, or homicidal ideation. Denies visual or auditory hallucinations. Physical Exam - Vital signs Vitals: Temp Pulse Resp BP Pulse Ox 98.3 F 91 16 151/89 H 99 10/21/18 14:26 10/21/18 14:26 10/21/18 14:26 10/21/18 14:26 10/21/18 14:26 Interpretation: Hypertensive. No: Febrile - Notes Notes: PHYSICAL EXAMINATION: GENERAL: Well-appearing, well-nourished and in no acute distress. HEAD: Atraumatic, normocephalic. EYES: Pupils equal round and reactive to light, extraocular movements intact, conjunctiva are normal. ENT: Nares patent, oropharynx clear without exudates. Moist mucous membranes. NECK: Normal range of motion, supple without lymphadenopathy LUNGS: Breath sounds clear to auscultation bilaterally and equal. No wheezes rales or rhonchi. HEART: Regular rate and rhythm without murmurs ABDOMEN: Soft, nontender, nondistended abdomen. No guarding, no rebound. No masses appreciated. Female : Pelvic exam; External genitalia unremarkable. Speculum exam withno discharge. Vaginal wall unremarkable. Os closed. No cervical motion tenderness. No adnexal tenderness or masses appreciated. Swabs obtained for gonorrhea, chlamydia . Musculoskeletal: Normal range of motion, no pitting or edema. No cyanosis. NEUROLOGICAL: Cranial nerves grossly intact. Normal speech, normal gait. Normal sensory, motor exams PSYCH: Normal mood, normal affect. SKIN: Warm, Dry, normal turgor, no rashes or lesions noted. Course - Re-evaluation Re-evalutation: 10/21/18 21:29 Laboratory 10/21/18 10/21/1810/21/19 14:55 14:55 14:55 WBC 6.3 RBC 4.49 Hgb 13.6 Hct 41.0 MCV 91 MCH 30.3 MCHC 33.2 RDW 14.3 H Plt Count 339 Total Counted 100 Seg Neutrophils % Not Reportable Seg Neuts % (Manual) 51 Lymphocytes % Not Reportable Lymphocytes % (Manual) 39 Monocytes % Not Reportable Monocytes % (Manual) 9 Eosinophils % Not Reportable Eosinophils % (Manual) 1 Basophils % Not Reportable Basophils % (Manual) 0 Absolute Neutrophils Not Reportable Abs Neuts (Manual) 3.2 Absolute Lymphocytes Not Reportable Abs Lymphs (Manual) 2.5 Absolute Monocytes Not Reportable Abs Monocytes (Manual) 0.6 Absolute Eosinophils Not Reportable Absolute Eos (Manual) 0.1 Absolute Basophils Not Reportable Abs Basophils (Manual) 0.0 Large Platelets PRESENT Platelet Comment ADEQUATE Anisocytosis SLIGHT Sodium 140.9 Potassium 4.0 Chloride 108 H Carbon Dioxide 26 Anion Gap 7 BUN 13 Creatinine 0.99 Est GFR ( Amer) > 60 Est GFR (Non-Af Amer) > 60 Glucose 66 L POC Glucose Calcium 9.9 Total Bilirubin 0.5 Direct Bilirubin 0.3 Neonat Total Bilirubin Not Reportable Neonat Direct Bilirubin Not Reportable Neonat Indirect Bili Not Reportable AST 26 ALT 23 Alkaline Phosphatase 153 H Total Protein 7.9 Albumin 4.1 Serum HCG, Qual NEGATIVE Urine Color Urine Appearance Urine pH Ur Specific Alloway Urine Protein Urine Glucose (UA) Urine Ketones Urine Blood Urine Nitrite Urine Bilirubin Urine Urobilinogen Ur Leukocyte Esterase Urine WBC (Auto) Urine RBC (Auto) Squamous Epi Cells Auto Urine Mucus (Auto) Urine Ascorbic Acid Chlamydia DNA (PCR) N.gonorrhoeae DNA (PCR) 10/21/18 10/21/18 10/21/18 14:55 14:55 16:38 WBC RBC Hgb Hct MCV MCH MCHC RDW Plt Count Total Counted Seg Neutrophils % Seg Neuts % (Manual) Lymphocytes % Lymphocytes % (Manual) Monocytes % Monocytes % (Manual) Eosinophils % Eosinophils % (Manual) Basophils % Basophils % (Manual) Absolute Neutrophils Abs Neuts (Manual) Absolute Lymphocytes Abs Lymphs (Manual) Absolute Monocytes Abs Monocytes (Manual) Absolute Eosinophils Absolute Eos (Manual) Absolute Basophils Abs Basophils (Manual) Large Platelets Platelet Comment Anisocytosis Sodium Potassium Chloride Carbon Dioxide Anion Gap BUN Creatinine Est GFR ( Amer) Est GFR (Non-Af Amer) Glucose POC Glucose 77 Calcium Total Bilirubin Direct Bilirubin Neonat Total Bilirubin Neonat Direct Bilirubin Neonat Indirect Bili AST ALT Alkaline Phosphatase Total Protein Albumin Serum HCG, Qual Urine Color YELLOW Urine Appearance CLEAR Urine pH 5.0 Ur Specific [place]ay 1.020 Urine Protein NEGATIVE Urine Glucose (UA) NEGATIVE Urine Ketones NEGATIVE Urine Blood LARGE H Urine Nitrite NEGATIVE Urine Bilirubin NEGATIVE Urine Urobilinogen NEGATIVE Ur Leukocyte Esterase NEGATIVE Urine WBC (Auto) 1 Urine RBC (Auto) 113 Squamous Epi Cells Auto <1 Urine Mucus (Auto) OCC Urine Ascorbic Acid NEGATIVE Chlamydia DNA (PCR) NOT DETECTED N.gonorrhoeae DNA (PCR) NOT DETECTED Transvaginal US 10/21/18 14:46 IMPRESSION: Bilateral ovarian cysts. The largest is 4.6 cm on the right. Temp Pulse Resp BP Pulse Ox 97.8 F 65 16 133/79 H 99 10/21/18 18:11 10/21/18 18:11 10/21/18 18:11 10/21/18 18:11 10/21/18 18:11 38-year-old female presents with pelvic pain that started 2 days prior to arr ival. Patient does have a history of bilateral ovarian cyst but was told that she cannot be put on control because she had one episode of pancreatitis. Patient did receive hydrocodone prior to my exam and states that she has had a great improvement of her pain. Transvaginal ultrasound was obtained and showed bilateral ovarian cyst without evidence of torsion. Gonorrhea and chlamydia are negative. Urinalysis shows blood but patient is currently menstruating. CBC, CMP are unremarkable. Patient has no upper abdominal pain. Patient's nausea and vomiting have resolved. I did research [id number] control pills and their association with pancreatitis and did find a few case reports that patient's who were already on control pills have developed pancreatitis but during the patient's pancreatitis she was not on control pills. Patient states that she has no insurance and feels that her POLICE WORKER did not offer her any further treatment for her monthly pain and denied to giving her control pills because of this. Again I can only find a few case reports of this. She states that she is willing to try. Patient did receive Toradol, a prescription for Sprintec and Naprosyn. Patient was evaluated and treated as appropriate for the patient's presenting symptoms and complaint, with consideration of any critical or life threatening conditions that may be associated with their obtained history and exam as noted above. All results were discussed with patient. Patient provided the opportunity to ask questions, and express concerns. Patient was educated on treatments based on their presumed diagnosis as noted above. At this time we will discharge the patient with return precautions and follow-up recommendations. Verbal discharge instructions given a the bedside. Medication warnings reviewed. Patient is in agreement with this plan and has verbalized understanding of return precautions. After careful consideration I feel that that patient can be safely discharged from the emergency department, they were advised to followup with a primary c are physician in 2-3 days. Dictation on this chart was performed using voice recognition software and may result in unintended grammatical, spelling, syntax or errors. - Vital Signs Vital signs: Temp Pulse Resp BP Pulse Ox 97.8 F 65 16 133/79 H 99 10/21/18 18:11 10/21/18 18:11 10/21/18 18:11 10/21/18 18:11 10/21/18 18:11 - Laboratory Result Diagrams: 10/21/18 14:55 10/21/18 14:55 Laboratory results interpreted by me: 10/21/18 10/21/18 10/21/18 14:55 14:55 14:55 RDW 14.3 H Chloride 108 H Glucose 66 L Alkaline Phosphatase 153 H Urine Blood LARGE H - Diagnostic Test Radiology reviewed: Image reviewed, Reports reviewed Discharge - Discharge Clinical Impression: Bilateral ovarian cysts, Pelvic pain Condition: Stable Disposition: HOME, SELF-CARE Instructions: Ovarian Cyst ([facility]), Pelvic Pain ([facility]) Prescriptions: Naproxen 500 mg PO BID PRN #20 tablet PRN Reason: For Pain Scale 2-3 Norgestimate-Ethinyl Estradiol [Sprintec 28 Day Tablet] 1 each PO ASDIR PRN #1 packet PRN Reason: Forms: Elevated Blood Pressure
[2018-10-21 18:12] VITALS: BP 133/79
== END 2018-10-21 18:12 | disposition home or self-care (01) ==
LOC: ER 14:19
DX: N83.202 Unspecified ovarian cyst, left side (principal); N83.201 Unspecified ovarian cyst, right side; R10.2 Pelvic and perineal pain; R10.30 Lower abdominal pain, unspecified; R11.2 Nausea with vomiting, unspecified; I10 Essential (primary) hypertension; Z90.49 Acquired absence of other specified parts of digestive tract
CPT/HCPCS: 99284; 96374; 96375; 36415; 82962; 84703; 85025; 80053; 81001; 87491; 87591; 76830; 93976; J3490; S0119; J1885; 96361

== ENCOUNTER 2018-10-22 16:50 | Emergency (ER) | payer SELFPAY ==
[2018-10-22 16:59] VITALS: BP 127/80
[2018-10-22] MEDS ORDERED: ONDANSETRON 4 MG TAB.RAPDIS PO ONE (17:34)
[2018-10-22] MEDS ORDERED: HYDROCODONE/ACETAMINOPHEN 5-325 MG TABLET PO ONE (17:34)
--- NOTE | 2018-10-22 17:44 | ER Document Report ---
ED GI/ - General Chief Complaint: Nausea/Vomiting Stated Complaint: NAUSEA Time Seen by Provider: 10/22/18 17:22 Mode of Arrival: Ambulatory Information source: Patient TRAVEL OUTSIDE OF THE [place] IN LAST 30 DAYS: No - HPI Patient complains to provider of: Abdominal pain Notes: 10/22/18 17:38 Patient is here with complaints of lower abdominal pain. The patient had lower abdominal pain for the last several days. She is also had some nausea vomiting. She had 2 episodes of vomiting yesterday and 2 episodes today. Patient was seen in the emergency department yesterday and and had an ultrasound showing bilateral ovarian cyst. Lab work was all unremarkable. She was sent home on control and Naprosyn. She states that the Naprosyn does not seem to be controlling her pain, she had 2 more episodes of vomiting today. No fevers. No diarrhea. No dysuria or hematuria. No vaginal bleeding or discharge. Pelvic exam was unremarkable yesterday as well as negative cultures. Patient denies any new symptoms, she states that the Naprosyn just does not seem to be helping her pain. No chest pain or shortness of breath. No rash. She denies any further complaints at this time. - Related Data Allergies/Adverse Reactions: No Known Allergies Allergy (Verified 10/22/18 16:51) Past Medical History - Social History Smoking Status: Former Smoker Chew tobacco use (# tins/day): No Frequency of alcohol use: None Drug Abuse: None Family History: Reviewed & Not Pertinent Patient has suicidal ideation: No Patient has homicidal ideation: No - Past Medical History Cardiac Medical History: Reports: Hx Hypertension Neurological Medical History: Reports: Hx Migraine Renal/ Medical History: Reports: Hx Kidney Stones. Denies: Hx Peritoneal Dialysis GI Medical History: Reports: Hx Pancreatitis Past Surgical History: Reports: Hx Section - x3, Hx Cholecystectomy - Immunizations Immunizations up to date: Yes Hx Diphtheria, Pertussis, Tetanus Vaccination: Yes Review of Systems - Review of Systems -: Yes All other systems reviewed and negative Physical Exam - Vital signs Vitals: Temp Pulse Resp BP Pulse Ox 98.2 F 92 14 127/80 H 100 10/22/18 16:55 10/22/18 16:55 10/22/18 16:55 10/22/18 16:55 10/22/18 16:55 - Notes Notes: GENERAL: alert, cooperative, nontoxic, no distress. HEAD: normocephalic, atraumatic EYES: conjunctiva pink without discharge, no external redness or swelling. EARS: no external swelling, no external redness NOSE: atraumatic, no external swelling MOUTH/THROAT: mucous membranes moist and pink, posterior pharynx without erythema, swelling, exudate. No trismus or drooling. NECK: soft, supple, full range of motion, no meningismus. CHEST: no distress, lungs clear and equal throughout. No wheezing, rales, rhonchi. CARDIAC: regular rate and rhythm, no murmur, normal capillary refill, normal pulses. No peripheral edema noted. ABDOMEN: Soft, mild lower abdominal tenderness to palpation. No rebound tenderness or guarding. No mass. BACK: full range of motion, no CVA tenderness. EXTREMITIES: full range of motion of all extremities. No redness, no swelling. NEURO: alert and oriented x 3, no focal deficits, full range of motion of all extremities. PYSCH: appropriate mood, affect. Patient is cooperative. SKIN: pink, warm, dry, no rash. Course - Re-evaluation Re-evalutation: 10/22/18 17:40 Patient is nontoxic-appearing stable vitals. Patient here with complaints of lower abdominal pain. She was seen here yesterday had negative labs, had ultrasound showing bilateral ovarian cyst. This is likely source of her pain. Pain is not worsened, just has not gotten any better and the Naprosyn does not seem to be helping. Patient has no focal tenderness on abdominal exam. I looked her up on [employer] aware, she has not had hardly any narcotic prescriptions. She is only had 2 in the last year. I am willing to give her a dose of Zofran and pain medication here in the emergency department discharged home with prescriptions for both with instructions to follow-up with her [facility] IMPREGNATOR at the next available appointment. Patient is agreeable to this plan. She is instructed to follow-up sooner if she develops worsening pain, high fever, persistent vomiting, or has any further concerns. I have very low suspicion for acute appendicitis, ovarian torsion or other serious bacterial infection in her pelvis causing her pain. The patient's emergency department workup and current diagnosis were explained to the patient and or family. Follow-up instructions were provided. Medications if prescribed were discussed. Instructions for when to return to the emergency department including specific worrisome symptoms were discussed with the patient and/or family. - Vital Signs Vital signs: Temp Pulse Resp BP Pulse Ox 98.2 F 92 14 127/80 H 100 10/22/18 16:55 10/22/18 16:55 10/22/18 16:55 10/22/18 16:55 10/22/18 16:55 Discharge - Discharge Clinical Impression: Cyst, ovarian Qualifiers: Laterality: bilateral Qualified Code(s): N83.201 - Unspecified ovarian cyst, right side; N83.202 - Unspecified ovarian cyst, left side Vomiting Qualifiers: Vomiting type: unspecified Vomiting Intractability: non-intractable Nausea presence: with nausea Qualified Code(s): R11.2 - Nausea with vomiting, unspecified Condition: Stable Disposition: HOME, SELF-CARE Instructions: Antinausea Medication ([facility]), Vomiting ([facility]), Ovarian Cyst ([facility]) Additional Instructions: Take medication as prescribed. Follow-up with your W[facility] IMPREGNATOR at the next available appointment. Follow-up sooner for worsening pain, fever, persistent vomiting, or for any further concerns. Prescriptions: Hydrocodone/Acetaminophen [[place] 5-325 mg Tablet] 2 tab PO Q6H PRN #15 tab PRN Reason: Ondansetron HCl [Zofran 4 mg Tablet] 1 - 2 tab PO Q4H PRN #10 tablet PRN Reason: Forms: Elevated Blood Pressure, Smoking Cessation Education Referrals: DONALD OSEGUERA MD [ACTIVE STAFF] - Follow up as needed
== END 2018-10-22 17:49 | disposition home or self-care (01) ==
LOC: ER 16:50
DX: N83.202 Unspecified ovarian cyst, left side (principal); N83.201 Unspecified ovarian cyst, right side; R11.2 Nausea with vomiting, unspecified; R10.30 Lower abdominal pain, unspecified; Z87.891 Personal history of nicotine dependence; I10 Essential (primary) hypertension
CPT/HCPCS: 99283; S0119

== ENCOUNTER 2019-01-15 12:16 | Emergency (ER) | payer SELFPAY ==
[2019-01-15 12:22] VITALS: BP 141/86
--- NOTE | 2019-01-15 13:28 | ER Document Report ---
ED Medical Screen (RME) - General Chief Complaint: Abdominal Pain Stated Complaint: BLOOD IN STOOL Time Seen by Provider: 01/15/19 13:24 Mode of Arrival: Ambulatory Information source: Patient Notes: This 38-year-old female presents emergency department with complaints of bilateral flank pain and abdominal pain. Reports started this morning around 03 100. Reports that she has had at least 6 episodes of bloody diarrhea. Reports urinary frequency also. Denies history of GI bleed. Reports blood on the stool has history of pancreatitis and kidney stones. Denies fever vomiting nausea. Denies trauma. Patient is tender to palpation on both flanks. Patient took Motrin around 10:00 today and it did not relieve her symptoms. I have greeted and performed a rapid initial assessment of this patient. A comprehensive ED assessment and evaluation of the patient, analysis of test results and completion of the medical decision making process will be conducted by additional ED providers. Dictation of this chart was performed using voice recognition software; therefore, there may be some unintended grammatical errors. TRAVEL OUTSIDE OF THE [place] IN LAST 30 DAYS: No - Related Data Allergies/Adverse Reactions: No Known Allergies Allergy (Verified 01/15/19 12:17) Past Medical History - Past Medical History Cardiac Medical History: Reports: Hx Hypertension Neurological Medical History: Reports: Hx Migraine Renal/ Medical History: Reports: Hx Kidney Stones. Denies: Hx Peritoneal Dialysis GI Medical History: Reports: Hx Pancreatitis Past Surgical History: Reports: Hx Section - x3, Hx Cholecystectomy - Immunizations Immunizations up to date: Yes Hx Diphtheria, Pertussis, Tetanus Vaccination: Yes History of Influenza Vaccine for 04/2017 - 08/2017 Season: Refused Physical Exam - Vital signs Vitals: Temp Pulse Resp BP Pulse Ox 98.1 F 95 20 141/86 H 97 01/15/19 12:22 01/15/19 12:22 01/15/19 12:22 01/15/19 12:22 01/15/19 12:22 Course - Vital Signs Vital signs: Temp Pulse Resp BP Pulse Ox 98.1 F 95 20 141/86 H 97 01/15/19 12:22 01/15/19 12:22 01/15/19 12:22 01/15/19 12:22 01/15/19 12:22
[2019-01-15 14:02] LABS: ABSOLUTE BASOPHILS # (AUTO) 0.1 10^3/uL (0.0-0.2); ABSOLUTE LYMPHOCYTES (AUTO) 2.5 10^3/uL (0.5-4.7); ABSOLUTE MONOCYTES (AUTO) 0.6 10^3/uL (0.1-1.4); ABSOLUTE NEUT (AUTO) 5.8 10^3/uL (1.7-8.2); BASOPHILS % (AUTO) 0.6 % (0-2); EOSINOPHILS % (AUTO) 0.1 % (0-6); HEMATOCRIT 40.9 % (36.0-47.0); HEMOGLOBIN 13.3 g/dL (12.0-15.5); LYMPHOCYTES % (AUTO) 27.4 % (13-45); MEAN CORPUSCULAR HEMOGLOBIN 29.5 pg (27.0-33.4); MEAN CORPUSCULAR HGB CONC 32.6 g/dL (32.0-36.0); MEAN CORPUSCULAR VOLUME 91 fl (80-97); MONOCYTES % (AUTO) 6.7 % (3-13); PLATELET COUNT 364 10^3/uL (150-450); RED BLOOD COUNT 4.51 10^6/uL (3.72-5.28); RED CELL DISTRIBUTION WIDTH 14.7 % (11.5-14.0); SEGMENTED NEUTROPHILS % (AUTO) 65.2 % (42-78); TOTAL CELLS COUNTED % (AUTO) 100 %; WHITE BLOOD COUNT 8.9 10^3/uL (4.0-10.5)
[2019-01-15 14:09] LABS: APPEARANCE,URINE SLIGHTLY-CLOUDY; BILIRUBIN,URINE NEGATIVE (NEGATIVE); COLOR,URINE YELLOW; GLUCOSE, URINE NEGATIVE (NEGATIVE); KETONES,URINE NEGATIVE (NEGATIVE); LEUKOCYTE ESTERASE,URINE NEGATIVE (NEGATIVE); NITRITE,URINE NEGATIVE (NEGATIVE); PROTEIN,URINE NEGATIVE (NEGATIVE); URINE SPECIFIC GRAVITY 1.016; UROBILINOGEN,URINE NEGATIVE mg/dL (<2.0)
[2019-01-15 14:25] LABS: ALANINE AMINOTRANSFERASE 21 U/L (9-52); ALBUMIN 4.1 g/dL (3.5-5.0); ALKALINE PHOSPHATASE 153 U/L (38-126); AMYLASE 192 U/L (30-110); ANION GAP 9 (5-19); ASPARTATE AMINO TRANSFERASE 22 U/L (14-36); BILIRUBIN,DIRECT 0.1 mg/dL (0.0-0.4); BILIRUBIN,TOTAL 0.6 mg/dL (0.2-1.3); BLOOD UREA NITROGEN 9 mg/dL (7-20); CALCIUM 9.2 mg/dL (8.4-10.2); CARBON DIOXIDE 25 mmol/L (22-30); CHLORIDE 105 mmol/L (98-107); GLUCOSE 83 mg/dL (75-110); POTASSIUM 4.3 mmol/L (3.6-5.0); SODIUM 139.4 mmol/L (137-145); TOTAL PROTEIN 7.4 g/dL (6.3-8.2)
[2019-01-15] MEDS ORDERED: HYDROCODONE/ACETAMINOPHEN 5-325 MG TABLET PO ONE (14:53)
--- NOTE | 2019-01-15 16:37 | RADIOLOGY REPORT (SQ) ---
EXAM DESCRIPTION: U/S ABDOMEN LTD W/DOPPLER COMPLETED DATE/TIME: 01/15/2019 4:23 pm REASON FOR STUDY: ABD PAIN, COMPARISON: 07/23/2017. TECHNIQUE: Dynamic and static grayscale images acquired of the abdomen and recorded on PACS. Additio nal selected color Doppler and spectral images recorded. LIMITATIONS: None. FINDINGS: PANCREAS: Partially visualized. Unremarkable. LIVER: No focal lesions. Increased echogenicity with decreased visualization of the portal triads. No intrahepatic ductal dilation. LIVER VASCULATURE: Normal directional flow of the main portal vein and hepatic veins. GALLBLADDER: Surgically absent. ULTRASOUND-DETECTED PETERSON'S SIGN: Not applicable. INTRAHEPATIC DUCTS AND COMMON DUCT: CBD and intrahepatic ducts normal caliber. No filling defects. INFERIOR VENA CAVA: Normal flow. AORTA: No aneurysm. RIGHT KIDNEY: Normal size. Normal echogenicity. No solid or suspicious masses. No hydronephrosis. No calcifications. PERITONEAL AND RIGHT PLEURAL SPACE: No ascites or effusions. OTHER: No other significant findings. IMPRESSION: 1. Likely hepatic steatosis. 2. Status post cholecystectomy. TECHNICAL DOCUMENTATION: JOB ID: [id number] [employer]- All Rights Reserved Reading location - IP/workstation name: [email or web address]
[2019-01-15] MEDS ORDERED: KETOROLAC TROMETHAMINE INJ/PF 30 MG/1 ML SDV IV ONE (17:12)
[2019-01-15] MEDS ORDERED: ONDANSETRON HCL INJ/PF 4 MG/2 ML SDV IV ONE (17:12)
[2019-01-15] MEDS ORDERED: NORMAL SALINE 1000 ML 1,000 ML IV ONE (17:13)
--- NOTE | 2019-01-15 17:15 | ER Document Report ---
ED GI/ - General Chief Complaint: Abdominal Pain Stated Complaint: BLOOD IN STOOL Time Seen by Provider: 01/15/19 13:24 Mode of Arrival: Ambulatory Information source: Patient Notes: Patient is a 38-year-old female presenting to the emergency department with chief complaint of bilateral flank pain and lower abdominal pain that started at 3:00 this morning. She denies any fevers, nausea or vomiting. She does report diarrhea and states there is been blood in her diarrhea. She reports history of kidney stones, states that is what she thinks this is. TRAVEL OUTSIDE OF THE [place] IN LAST 30 DAYS: No - Related Data Allergies/Adverse Reactions: No Known Allergies Allergy (Verified 01/15/19 12:17) Past Medical History - General Information source: Patient - Social History Smoking Status: Never Smoker Chew tobacco use (# tins/day): No Frequency of alcohol use: None Drug Abuse: None Family History: Reviewed & Not Pertinent Patient has suicidal ideation: No Patient has homicidal ideation: No - Past Medical History Cardiac Medical History: Reports: Hx Hypertension Neurological Medical History: Reports: Hx Migraine Renal/ Medical History: Reports: Hx Kidney Stones. Denies: Hx Peritoneal Dialysis GI Medical History: Reports: Hx Pancreatitis Past Surgical History: Reports: Hx Section - x3, Hx Cholecystectomy, Hx Tubal Ligation - Immunizations Immunizations up to date: Yes Hx Diphtheria, Pertussis, Tetanus Vaccination: Yes Review of Systems - Review of Systems Constitutional: No symptoms reported EENT: No symptoms reported Cardiovascular: No symptoms reported Respiratory: No symptoms reported Gastrointestinal: See HPI Genitourinary: No symptoms reported Female Genitourinary: No symptoms reported Musculoskeletal: No symptoms reported Skin: No symptoms reported Hematologic/Lymphatic: No symptoms reported Neurological/Psychological: No symptoms reported Physical Exam - Vital signs Vitals: Temp Pulse Resp BP Pulse Ox 98.1 F 95 20 141/86 H 97 01/15/19 12:22 01/15/19 12:22 01/15/19 12:22 01/15/19 12:22 01/15/19 12:22 Course - Re-evaluation Re-evalutation: CBC, CMP and urinalysis are unremarkable. hCG is negative. Ultrasound of the right upper quadrant shows hepatic steatosis. Patient continues to be in pretty significant pain so will send patient for a CT to evaluate for renal stone although there is no blood in the urine. Patient will be medicated with IV Zofran and IV Toradol at this time. Patient did get medicated with hydrocodone by the triage provider. Laboratory 01/15/19 01/15/19 01/15/19 13:40 13:40 13:40 WBC 8.9 RBC 4.51 Hgb 13.3 Hct 40.9 MCV 91 MCH 29.5 MCHC 32.6 RDW 14.7 H Plt Count 364 Seg Neutrophils % 65.2 Lymphocytes % 27.4 Monocytes % 6.7 Eosinophils % 0.1 Basophils % 0.6 Absolute Neutrophils 5.8 Absolute Lymphocytes 2.5 Absolute Monocytes 0.6 Absolute Eosinophils 0.0 Absolute Basophils 0.1 Sodium 139.4 Potassium 4.3 Chloride 105 Carbon Dioxide 25 Anion Gap 9 BUN 9 Creatinine 0.82 Est GFR ( Amer) > 60 Est GFR (Non-Af Amer) > 60 Glucose 83 Calcium 9.2 Total Bilirubin 0.6 Direct Bilirubin 0.1 Neonat Total Bilirubin Not Reportable Neonat Direct Bilirubin Not Reportable Neonat Indirect Bili Not Reportable AST 22 ALT 21 Alkaline Phosphatase 153 H Total Protein 7.4 Albumin 4.1 Amylase 192 H Serum HCG, Qual NEGATIVE Urine Color Urine Appearance Urine pH Ur Specific [place] Urine Protein Urine Glucose (UA) Urine Ketones Urine Blood Urine Nitrite Urine Bilirubin Urine Urobilinogen Ur Leukocyte Esterase Urine WBC (Auto) Urine RBC (Auto) Squamous Epi Cells Auto Urine Mucus (Auto) Urine Ascorbic Acid 01/15/19 13:40 WBC RBC Hgb Hct MCV MCH MCHC RDW Plt Count Seg Neutrophils % Lymphocytes % Monocytes % Eosinophils % Basophils % Absolute Neutrophils Absolute Lymphocytes Absolute Monocytes Absolute Eosinophils Absolute Basophils Sodium Potassium Chloride Carbon Dioxide Anion Gap BUN Creatinine Est GFR ( Amer) Est GFR (Non-Af Amer) Glucose Calcium Total Bilirubin Direct Bilirubin Neonat Total Bilirubin Neonat Direct Bilirubin Neonat Indirect Bili AST ALT Alkaline Phosphatase Total Protein Albumin Amylase Serum HCG, Qual Urine Color YELLOW Urine Appearance SLIGHTLY-CLOUDY Urine pH 6.0 Ur Specific [place] 1.016 Urine Protein NEGATIVE Urine Glucose (UA) NEGATIVE Urine Ketones NEGATIVE Urine Blood NEGATIVE Urine Nitrite NEGATIVE Urine Bilirubin NEGATIVE Urine Urobilinogen NEGATIVE Ur Leukocyte Esterase NEGATIVE Urine WBC (Auto) 1 Urine RBC (Auto) 0 Squamous Epi Cells Auto 3 Urine Mucus (Auto) RARE Urine Ascorbic Acid NEGATIVE Abdomen Ultrasound 01/15/19 14:51 IMPRESSION: 1. Likely hepatic steatosis. 2. Status post cholecystectomy. Abdomen/Pelvis CT 01/15/19 17:10 IMPRESSION: Lower descending colon mild inflammatory changes consistent with diverticulitis. No free-air or fluid collection. Labs as recorded are unremarkable other than elevated amylase. CT shows some mild inflammatory changes consistent with diverticulitis. Patient had normal vital signs at time of arrival, she has no elevation of her WBCs. Patient will be discharged home as she has not been vomiting while in the emergency department. When I went to the room to discharge the patient the nursing staff told me that the patient had eloped from the room. Her discharge instructions and prescriptions are ready for her however somebody needs to go over them and explained her diagnosis. I did hand the chart off to my shift mgr PA and I made a phone call to the patient and left a message stating that she needed to call the emergency department and ask for us so that we could hopefully have her come back to get her discharge papers and discussed ED return precautions. - Vital Signs Vital signs: Temp Pulse Resp BP Pulse Ox 98.1 F 95 20 141/86 H 97 01/15/19 12:22 01/15/19 12:22 01/15/19 12:22 01/15/19 12:22 01/15/19 12:22 - Laboratory Result Diagrams: 01/15/19 13:40 01/15/19 13:40 Laboratory results interpreted by me: 01/15/19 01/15/19 13:40 13:40 RDW 14.7 H Alkaline Phosphatase 153 H Amylase 192 H Discharge - Discharge Clinical Impression: Diverticulitis Condition: Stable Disposition: HOME, SELF-CARE Additional Instructions: Diverticulitis You have been diagnosed as having diverticulitis. This is an inflammation of a small pouch attached to the colon, called a diverticulum. Many of these small pouches can form on the colon as you get older. They are often caused by constipation. When inflamed or infected, symptoms arise -- usually abdominal pain, constipation or diarrhea, fever, and blood in the stool. Severe diverticulitis may require hospitalization. More mild cases are usually treated with antibiotics and clear liquid diet. As you improve, a diet low in residue (one which forms little stool) is prescribed. When you are better, you should eat a high-fiber diet. Stool softeners (like Metamucil) are usually recommended. Call the doctor or go to the hospital if there is increasing pain, vomiting, high fever, large amounts of blood passed, or if bowel movements cease. Please take all medications that I have prescribed as directed. Please return to the emergency department for any worsening symptoms to include worsening pain, persistent vomiting despite taking medications, development of fever or passing large amounts of blood in your stool. We will have be happy to reevaluate you at any time. Prescriptions: Ciprofloxacin HCl [Cipro 500 mg Tablet] 500 mg PO BID #14 tablet Hydrocodone/Acetaminophen [[place] 5-325 mg Tablet] 1 tab PO Q4H #12 tablet Metronidazole [Flagyl 500 mg Tablet] 500 mg PO TID #21 tablet Ondansetron [Zofran Odt 4 mg Tablet] 1 - 2 tab PO Q4H PRN #15 tab.rapdis PRN Reason: For Nausea/Vomiting Forms: Return to Work
--- NOTE | 2019-01-15 19:24 | RADIOLOGY REPORT (SQ) ---
EXAM DESCRIPTION: CT ABD/PELVIS WITH IV ONLY COMPLETED DATE/TIME: 01/15/2019 7:04 pm REASON FOR STUDY: low abd pain, hx of stones COMPARISON: 07/23/2017 TECHNIQUE: CT scan of the abdomen and pelvis performed using helical scanning technique with dynamic intravenous contrast injection. No oral contrast. Images reviewed with lung, soft tissue, and bone w indows. Reconstructed coronal and sagittal MPR images reviewed. Delayed images for evaluation of the urinary system also acquired. All images stored on PACS. All CT scanners at this facility use dose modulation, iterative reconstruction, and/or weight based d osing when appropriate to reduce radiation dose to as low as reasonably achievable (ALARA). [facility]: Dose Right [facility]: CareDose [facility]: Dose Right [facility]: Teradose 4D [facility]: [employer] Plan CONTRAST TYPE AND DOSE: contrast/concentration: Isovue 350.00 mg/ml; Total Contrast Delivered: 83.0 ml; Total Saline Delivered: 69.0 ml RENAL FUNCTION: GFR > 60. RADIATION DOSE: CT Rad equipment meets quality standard of care and radiation dose reduction techniq ues were employed. CTDIvol: 8.2 - 11.7 mGy. DLP: 1027 mGy-cm.. LIMITATIONS: None. FINDINGS: LOWER CHEST: No significant findings. LIVER: Normal size. No enhancing masses. No dilated ducts. SPLEEN: Normal size. No focal lesions. PANCREAS: No masses identified. No significant calcifications. No adjacent inflammation or peripancre atic fluid collections. Pancreatic duct not dilated. GALLBLADDER: Surgically absent. ADRENAL GLANDS: No significant masses. RIGHT KIDNEY AND URETER: No cysts identified. No solid masses identified. No calcified stones. No hyd ronephrosis or hydroureter. LEFT KIDNEY AND URETER: No cysts identified. No solid masses identified. No calcified stones. No hydr onephrosis or hydroureter. AORTA AND VESSELS: No aneurysm. No dissection. Renal arteries, SMA, celiac without significant stenos is. RETROPERITONEUM: No bulky retroperitoneal adenopathy. BOWEL AND PERITONEAL CAVITY: No obstruction. Lower descending colon mild inflammatory changes consis tent with diverticulitis. No free-air or fluid collection. APPENDIX: Normal. PELVIS: No mass. No free fluid. Unremarkable bladder. ABDOMINAL WALL: No masses. No hernias. BONES: No acute findings. OTHER: No other significant finding. IMPRESSION: Lower descending colon mild inflammatory changes consistent with diverticulitis. No florian e-air or fluid collection. TECHNICAL DOCUMENTATION: JOB ID: [id number] Quality ID # [id number]: Final reports with documentation of one or more dose reduction techniques (e.g., Au tomated exposure control, adjustment of the mA and/or kV according to patient size, use of iterative reconstruction technique) 2010 [employer]- All Rights Reserved Reading location - IP/workstation name: [email or web address]
== END 2019-01-15 19:30 | disposition home or self-care (01) ==
LOC: ER 12:16
DX: K57.93 Diverticulitis of intestine, part unspecified, without perforation or abscess with bleeding (principal); R10.9 Unspecified abdominal pain; R10.30 Lower abdominal pain, unspecified; R19.7 Diarrhea, unspecified; I10 Essential (primary) hypertension; Z90.49 Acquired absence of other specified parts of digestive tract; Z87.442 Personal history of urinary calculi; Z98.51 Tubal ligation status; Z87.19 Personal history of other diseases of the digestive system
CPT/HCPCS: 99284; 96361; 96374; 96375; 36415; 82150; 84703; 85025; 80053; 81001; 76705; 93976; 74177; J1885; J2405; J7030

== ENCOUNTER 2019-01-22 15:23 | Emergency (ER) | payer SELFPAY ==
[2019-01-22] MEDS ORDERED: ONDANSETRON 4 MG TAB.RAPDIS PO ONE (17:13)
--- NOTE | 2019-01-22 17:16 | ER Document Report ---
ED Medical Screen (RME) - General Chief Complaint: Abdominal Pain Stated Complaint: SICK Time Seen by Provider: 01/22/19 16:42 Mode of Arrival: Ambulatory Information source: Patient Notes: Patient is a 38-year-old female with a recent diagnosis of diverticulitis, started on Cipro and Flagyl, followed up with the [facility] today and had increased left-sided pain, they sent her here for evaluation due to increased pain and no relief of diarrhea or diverticulitis symptoms. TRAVEL OUTSIDE OF THE [place] IN LAST 30 DAYS: No - Related Data Allergies/Adverse Reactions: No Known Allergies Allergy (Verified 01/22/19 15:34) Past Medical History - General Information source: Patient - Social History Chew tobacco use (# tins/day): No Frequency of alcohol use: None Drug Abuse: None - Past Medical History Cardiac Medical History: Reports: Hx Hypertension Neurological Medical History: Reports: Hx Migraine Renal/ Medical History: Reports: Hx Kidney Stones. Denies: Hx Peritoneal Dialysis GI Medical History: Reports: Hx Pancreatitis Past Surgical History: Reports: Hx Section - x3, Hx Cholecystectomy, Hx Tubal Ligation - Immunizations Immunizations up to date: Yes Hx Diphtheria, Pertussis, Tetanus Vaccination: Yes History of Influenza Vaccine for 04/2017 - 08/2017 Season: Refused Review of Systems - Review of Systems Gastrointestinal: See HPI Physical Exam - Vital signs Vitals: Temp Pulse Resp BP Pulse Ox 98.7 F 108 H 12 143/106 H 99 01/22/19 15:55 01/22/19 15:55 01/22/19 15:55 01/22/19 15:55 01/22/19 15:55 - Notes Notes: PHYSICAL EXAMINATION: GENERAL: Well-appearing and in no acute distress. ABDOMEN: Soft, diffuse tenderness, left lower quadrant worse. No guarding, no rebound Course - Vital Signs Vital signs: Temp Pulse Resp BP Pulse Ox 98.7 F 108 H 12 143/106 H 99 01/22/19 15:55 01/22/19 15:55 01/22/19 15:55 01/22/19 15:55 01/22/19 15:55
[2019-01-22 17:39] LABS: ABSOLUTE LYMPHOCYTES (AUTO) 2.1 10^3/uL (0.5-4.7); ABSOLUTE MONOCYTES (AUTO) 0.5 10^3/uL (0.1-1.4); ABSOLUTE NEUT (AUTO) 4.3 10^3/uL (1.7-8.2); BASOPHILS % (AUTO) 0.5 % (0-2); EOSINOPHILS % (AUTO) 0.3 % (0-6); HEMATOCRIT 43.3 % (36.0-47.0); HEMOGLOBIN 14.3 g/dL (12.0-15.5); LYMPHOCYTES % (AUTO) 30.1 % (13-45); MEAN CORPUSCULAR HEMOGLOBIN 30.1 pg (27.0-33.4); MEAN CORPUSCULAR VOLUME 91 fl (80-97); MONOCYTES % (AUTO) 7.5 % (3-13); PLATELET COUNT 404 10^3/uL (150-450); RED BLOOD COUNT 4.75 10^6/uL (3.72-5.28); RED CELL DISTRIBUTION WIDTH 14.9 % (11.5-14.0); SEGMENTED NEUTROPHILS % (AUTO) 61.6 % (42-78); TOTAL CELLS COUNTED % (AUTO) 100 %; WHITE BLOOD COUNT 6.9 10^3/uL (4.0-10.5)
[2019-01-22 17:59] LABS: ALANINE AMINOTRANSFERASE 34 U/L (9-52); ALBUMIN 4.3 g/dL (3.5-5.0); ALKALINE PHOSPHATASE 146 U/L (38-126); ANION GAP 10 (5-19); ASPARTATE AMINO TRANSFERASE 38 U/L (14-36); BILIRUBIN,DIRECT 0.1 mg/dL (0.0-0.4); BILIRUBIN,TOTAL 0.5 mg/dL (0.2-1.3); BLOOD UREA NITROGEN 9 mg/dL (7-20); CALCIUM 9.5 mg/dL (8.4-10.2); CARBON DIOXIDE 26 mmol/L (22-30); CHLORIDE 104 mmol/L (98-107); GLUCOSE 90 mg/dL (75-110); TOTAL PROTEIN 7.8 g/dL (6.3-8.2)
[2019-01-22] MEDS ORDERED: ONDANSETRON HCL INJ/PF 4 MG/2 ML SDV IV ONE (19:03)
[2019-01-22] MEDS ORDERED: MORPHINE SULFATE 10 MG/ML INJ IV ONE ×2 (19:03→21:59)
[2019-01-22] MEDS ORDERED: NORMAL SALINE 1000 ML 1,000 ML IV ONE (19:03)
--- NOTE | 2019-01-22 19:03 | ER Document Report ---
ED General <TORRES TURNER - Last Filed: 01/22/19 22:11> - General Mode of Arrival: Ambulatory TRAVEL OUTSIDE OF THE [place] IN LAST 30 DAYS: No <JACK CARPENTER - Last Filed: 01/22/19 22:28> - General Chief Complaint: Abdominal Pain Stated Complaint: SICK Time Seen by Provider: 01/22/19 16:42 Primary Care Provider: JHOAN MARROQUIN MD [ACTIVE STAFF] - Follow up in 3-5 days (FOR GASTROENTEROLOGY FOLLOW UP) - Related Data Allergies/Adverse Reactions: No Known Allergies Allergy (Verified 01/22/19 15:34) Past Medical History - General Information source: Patient - Social History Smoking Status: Never Smoker Chew tobacco use (# tins/day): No Frequency of alcohol use: None Drug Abuse: None Family History: Reviewed & Not Pertinent Patient has suicidal ideation: No Patient has homicidal ideation: No - Past Medical History Cardiac Medical History: Reports: Hx Hypertension Neurological Medical History: Reports: Hx Migraine Renal/ Medical History: Reports: Hx Kidney Stones. Denies: Hx Peritoneal Dialysis GI Medical History: Reports: Hx Pancreatitis Past Surgical History: Reports: Hx Section - x3, Hx Cholecystectomy, Hx Tubal Ligation - Immunizations Immunizations up to date: Yes Hx Diphtheria, Pertussis, Tetanus Vaccination: Yes <JACK CARPENTER - Last Filed: 01/22/19 22:28> - Vital signs Vitals: Temp Pulse Resp BP Pulse Ox 98.7 F 108 H 12 143/106 H 99 01/22/19 15:55 01/22/19 15:55 01/22/19 15:55 01/22/19 15:55 01/22/19 15:55 Course - Laboratory Result Diagrams: 01/22/19 17:05 01/22/19 17:05 <TORRES TURNER - Last Filed: 01/22/19 22:11> - Laboratory Result Diagrams: 01/22/19 17:05 01/22/19 17:05 <JACK CARPETNER - Last Filed: 01/22/19 22:28> - Re-evaluation Re-evalutation: 01/22/19 22:11 I personally and independently obtained patient history and examined the patient and have reviewed the APC's note, reviewed, discussed and agree with their assessment and plan. HISTORY OF PRESENT ILLNESS: Patient is a 38-year-old female that presents to the emergency department for chief complaint of abdominal pain from diverticulitis. ROS: Constitutional: Negative for fever. Cardiovascular: Negative for chest pain. Respiratory: Negative for shortness of breath. Gastrointestinal: abdominal pain Musculoskeletal: Negative for arm, leg or back pain Skin: Negative for rash. Neurological: Negative for weakness or numbness. Unless otherwise stated in this report the patient's positive and negative resp onses for review of systems for constitutional, eyes, ENT, cardiovascular, respiratory, gastrointestinal, neurological, genitourinary, musculoskeletal, and integumentary systems and related systems to the presenting problem are either as stated in the HPI or were not pertinent or were negative for the symptoms and/or complaints related to the presenting medical problem. PHYSICAL EXAMINATION: Vital signs reviewed, nursing noted reviewed. GENERAL: Well-appearing, well-nourished and in no acute distress. HEAD: Atraumatic, normocephalic. EYES: Eyes appear normal, conjunctiva are normal. ENT: nares patent, oropharynx clear without exudates. Moist mucous membranes. NECK: Normal range of motion, supple without lymphadenopathy LUNGS: Breath sounds clear to auscultation bilaterally and equal. No wheezes rales or rhonchi. HEART: Regular rate and rhythm without murmurs ABDOMEN: Soft, mild diffuse tenderness worse in the LLQ, normoactive bowel sounds. No rebound, guarding, or rigidity. No masses appreciated. EXTREMITIES: Nontender, good range of motion, no pitting or edema. NEUROLOGICAL: No focal neurological deficits. Moves all extremities spontaneously Motor and sensory grossly intact on exam. PSYCH: Normal mood, normal affect. SKIN: Warm, Dry, normal turgor, no rashes or lesions noted on exposed MEDICAL DECISION MAKING: Patient's lab work is unremarkable. CT scan shows improvement of her diverticulitis. She is tender consistent with diverticulitis but does not have peritoneal abdominal findings to suggest perforation. Patient will be given pain medication and antibiotics will be extended for a total of 10-day course. Patient will follow with her PCP in the next 2 to 3 days for reevaluation. Please review detail APC documentation. *Note is created using voice recognition software and may contain spelling, syntax or grammatical errors. (TORRES TURNER) - Vital Signs Vital signs: Temp Pulse Resp BP Pulse Ox 98.1 F 72 18 136/76 H 98 01/22/19 22:16 01/22/19 22:16 01/22/19 22:16 01/22/19 22:16 01/22/19 22:16 - Laboratory Laboratory results interpreted by me: 01/22/19 01/22/19 01/22/19 17:00 17:05 17:05 RDW 14.9 H AST 38 H Alkaline Phosphatase 146 H Urine Protein 30 H Urine Blood LARGE H Ur Leukocyte Esterase SMALL H Urine Ascorbic Acid 40 H Discharge <TORRES TURNER - Last Filed: 01/22/19 22:11> <JACK CARPENTER - Last Filed: 01/22/19 22:28> - Discharge Clinical Impression: Diverticulitis, LLQ abdominal pain Condition: Stable Disposition: HOME, SELF-CARE Instructions: Diverticulitis ([facility]) Additional Instructions: TAKE ALL MEDICINES PRESCRIBED, EXTEND ANTIBIOTICS TO MAKE A FULL 10 DAY C OURSE. RETURN IF WORSENING PAIN, PASSING OUT, FEVERS, INTRACTABLE VOMITING, WORSENING DIARRHEA. PUSH FLUIDS. FOLLOW UP WITH GI SPECIALIST. Prescriptions: Ciprofloxacin HCl [Cipro 500 mg Tablet] 500 mg PO BID #6 tablet Metronidazole [Flagyl 500 mg Tablet] 500 mg PO TID #9 tablet Oxycodone HCl/Acetaminophen [Percocet 5-325 mg Tablet] 1 tab PO Q6H PRN #15 tab PRN Reason: Promethazine HCl [Phenergan 25 mg Tablet] 25 mg PO Q6H #15 tablet Referrals: JEFRY TRUONG MD [ACTIVE STAFF] - Follow up in 3-5 days
[2019-01-22 19:06] LABS: APPEARANCE,URINE SLIGHTLY-CLOUDY; BILIRUBIN,URINE NEGATIVE (NEGATIVE); CALCIUM OXALATE CRYSTALS,URINE FEW /HPF; COLOR,URINE YELLOW; GLUCOSE, URINE NEGATIVE (NEGATIVE); KETONES,URINE NEGATIVE (NEGATIVE); LEUKOCYTE ESTERASE,URINE SMALL (NEGATIVE); NITRITE,URINE NEGATIVE (NEGATIVE); PROTEIN,URINE 30 mg/dL (NEGATIVE); URINE SPECIFIC GRAVITY 1.025; UROBILINOGEN,URINE NEGATIVE mg/dL (<2.0)
--- NOTE | 2019-01-22 20:47 | RADIOLOGY REPORT (SQ) ---
CT ABDOMEN PELVIS WITH IV CONTRAST EXAM DATE: 01/22/2019 5:30 PM CDT HISTORY: Left-sided abdominal pain. COMPARISON: 01/15/2019 TECHNIQUE: CT scan of the abdomen and pelvis was performed with IV contrast. This exam was performed according to our departmental dose-optimization program, which includes automated exposure control, adjustment of the mA and/or kV according to patient size and/or use of iterative reconstruction technique. FINDINGS: Lung bases are clear without pleural or pericardial effusion. No hiatal hernia. There has been a prior cholecystectomy. Hepatic steatosis. Spleen, pancreas, adrenal glands, and kidneys are normal. No hydronephrosis or urinary stones. Bilateral ovarian cysts are present. Interval improvement in sigmoid diverticulitis with minimal wall thickening of the sigmoid colon. No free air or abscess. Appendix is normal. No small bowel obstruction. Aorta is normal caliber. No acute bony findings. IMPRESSION: 1. Interval improvement in sigmoid diverticulitis, with minimal wall thickening. No abscess or free air. 2. Small benign appearing ovarian cyst. No follow-up imaging is recommended. Reference: J Am Stevie Radiol 2013;10:675-681
[2019-01-22 22:17] VITALS: BP 136/76
== END 2019-01-22 22:24 | disposition home or self-care (01) ==
LOC: ER 15:23
DX: K57.32 Diverticulitis of large intestine without perforation or abscess without bleeding (principal); N83.202 Unspecified ovarian cyst, left side; N83.201 Unspecified ovarian cyst, right side; R19.7 Diarrhea, unspecified; R11.2 Nausea with vomiting, unspecified; R53.1 Weakness; R53.81 Other malaise; R10.32 Left lower quadrant pain; R10.814 Left lower quadrant abdominal tenderness; R10.811 Right upper quadrant abdominal tenderness; R10.816 Epigastric abdominal tenderness; I10 Essential (primary) hypertension
CPT/HCPCS: 96376; 99284; 96361; 96374; 96375; 36415; 83690; 85025; 80053; 81001; 74177; S0119; J2270; J2405; J7030

== ENCOUNTER 2019-03-27 05:53 | Emergency (ER) | payer MEDICAID ==
[2019-03-27] MEDS ORDERED: NORMAL SALINE 1000 ML 1,000 ML IV ONE (07:01)
--- NOTE | 2019-03-27 07:03 | ER Document Report ---
ED General - General Chief Complaint: Constipation Stated Complaint: CONSTIPATION Time Seen by Provider: 03/27/19 06:31 TRAVEL OUTSIDE OF THE [place] IN LAST 30 DAYS: No - HPI Notes: Patient is a 39-year-old female presents emergency department for evaluation. She states she has not had a solid bowel movement in weeks. She was diagnosed with diverticulitis back in December. She took all the antibiotics as prescribed. She states she changed her diet as she read online to diminish her chances of diverticulitis. She states that her bowels have not been moving, so she started taking laxatives. Now she is only having watery diarrhea. She has felt weak all over, some malaise. She is unsure as to whether or not she had any fevers or chills. Some nausea but no emesis. Diminished appetite. No urinary symptoms. She denies possibility of . She had she has not been having any abdominal pain, but she feels her abdomen "rolling." - Related Data Allergies/Adverse Reactions: No Known Allergies Allergy (Verified 01/22/19 15:34) Past Medical History - General Information source: Patient - Social History Smoking Status: Never Smoker Chew tobacco use (# tins/day): No Frequency of alcohol use: None Drug Abuse: None Family History: Reviewed & Not Pertinent Patient has suicidal ideation: No Patient has homicidal ideation: No Neurological Medical History: Reports: Hx Migraine Renal/ Medical History: Reports: Hx Kidney Stones. Denies: Hx Peritoneal Dialysis GI Medical History: Reports: Hx Pancreatitis Past Surgical History: Reports: Hx Section - x3, Hx Cholecystectomy, Hx Tubal Ligation - Immunizations Immunizations up to date: Yes Hx Diphtheria, Pertussis, Tetanus Vaccination: Yes Review of Systems - Review of Systems Constitutional: See HPI EENT: No symptoms reported Cardiovascular: No symptoms reported Respiratory: No symptoms reported Gastrointestinal: See HPI Genitourinary: No symptoms reported Female Genitourinary: No symptoms reported Musculoskeletal: No symptoms reported Skin: No symptoms reported Neurological/Psychological: No symptoms reported Physical Exam - Vital signs Vitals: Temp Pulse Resp BP Pulse Ox 98 F 98 18 132/83 H 100 03/27/19 05:54 03/27/19 05:54 03/27/19 05:54 03/27/19 05:54 03/27/19 05:54 - Notes Notes: Vital signs reviewed, please refer to chart. Head is normocephalic, atraumatic. Pupils equal round, reactive to light. Neck is supple without meningismus. Heart is regular rate and rhythm. Lungs are clear to auscultation bilaterally. Abdomen is soft, nontender, normoactive bowel sounds throughout. Extremities without cyanosis, clubbing. Posterior calves are nontender. Peripheral pulses are equal. Skin is warm and dry. Patient is awake, alert, neurological exam is nonfocal. Course - Re-evaluation Re-evalutation: 03/27/19 09:00 Patient presented to the emergency department for evaluation. She was concerned she could be constipated she was having only liquid bowel movements. On further questioning, the patient has been following a low residue diet since her diagnosis of diverticulitis back in December. My strong suspicion is that she did not have enough fiber and bulk to her food to have formed bowel movements. She then started taking stimulant laxatives, causing diarrhea. Her laboratory investigations are unremarkable. Her x-ray showed a paucity of gas, but I do believe again that this is from cramping of her intestines induced by laxatives. I encouraged the patient to stop taking laxatives. I encouraged her to start adding some fiber back into her diet, stay well-hydrated. She is to follow-up with primary care in 1 to 2 weeks. She voiced understanding to this and was discharged. - Vital Signs Vital signs: Temp Pulse Resp BP Pulse Ox 98 F 98 18 132/83 H 100 03/27/19 05:54 03/27/19 05:54 03/27/19 05:54 03/27/19 05:54 03/27/19 05:54 - Laboratory Result Diagrams: 03/27/19 07:30 03/27/19 07:30 Laboratory results interpreted by me: 03/27/19 03/27/19 03/27/19 07:30 07:30 07:30 RDW 14.4 H [place] % (Auto) 13.1 H Total Bilirubin 1.5 H Alkaline Phosphatase 132 H Urine Ketones 20 H Discharge - Discharge Clinical Impression: Laxative induced diarrhea Condition: Stable Disposition: HOME, SELF-CARE Additional Instructions: Increase fiber. Stop the low residue diet. Increase hydration. Stop taking laxatives. Follow-up with primary care physician in 1 to 2 weeks. Return to the ED with worsening or new concerning symptoms of any sort.
--- NOTE | 2019-03-27 07:50 | RADIOLOGY REPORT (SQ) ---
EXAM DESCRIPTION: XR ABDOMEN 1 VIEW (KUB) COMPLETED DATE/TME: 03/27/2019 07:01 CLINICAL HISTORY: 39 years Female, eval for constipation COMPARISON: None. NUMBER OF VIEWS/TECHNIQUE: 1 FINDINGS: Intestinal gas pattern is within normal limits. Paucity of bowel gas. No suspicious calcification. Grossly intact skeletal structures. Right upper abdominal clips. Right pelvic clip. IMPRESSION: No acute findings.
[2019-03-27 08:00] LABS: ABSOLUTE LYMPHOCYTES (AUTO) 1.7 10^3/uL (0.5-4.7); ABSOLUTE MONOCYTES (AUTO) 0.6 10^3/uL (0.1-1.4); ABSOLUTE NEUT (AUTO) 2.3 10^3/uL (1.7-8.2); APPEARANCE,URINE CLEAR; BASOPHILS % (AUTO) 0.9 % (0-2); BILIRUBIN,URINE NEGATIVE (NEGATIVE); COLOR,URINE YELLOW; EOSINOPHILS % (AUTO) 0.5 % (0-6); GLUCOSE, URINE NEGATIVE (NEGATIVE); HEMATOCRIT 43.9 % (36.0-47.0); HEMOGLOBIN 14.4 g/dL (12.0-15.5); KETONES,URINE 20 mg/dL (NEGATIVE); LEUKOCYTE ESTERASE,URINE NEGATIVE (NEGATIVE); LYMPHOCYTES % (AUTO) 36.4 % (13-45); MEAN CORPUSCULAR HEMOGLOBIN 30.1 pg (27.0-33.4); MEAN CORPUSCULAR HGB CONC 32.7 g/dL (32.0-36.0); MEAN CORPUSCULAR VOLUME 92 fl (80-97); MONOCYTES % (AUTO) 13.1 % (3-13); NITRITE,URINE NEGATIVE (NEGATIVE); PLATELET COUNT 320 10^3/uL (150-450); PROTEIN,URINE NEGATIVE (NEGATIVE); RED BLOOD COUNT 4.78 10^6/uL (3.72-5.28); RED CELL DISTRIBUTION WIDTH 14.4 % (11.5-14.0); SEGMENTED NEUTROPHILS % (AUTO) 49.1 % (42-78); TOTAL CELLS COUNTED % (AUTO) 100 %; URINE SPECIFIC GRAVITY 1.017; UROBILINOGEN,URINE NEGATIVE mg/dL (<2.0); WHITE BLOOD COUNT 4.7 10^3/uL (4.0-10.5)
[2019-03-27 08:02] LABS: ALBUMIN 4.3 g/dL (3.5-5.0); ALKALINE PHOSPHATASE 132 U/L (38-126); ANION GAP 7 (5-19); ASPARTATE AMINO TRANSFERASE 26 U/L (14-36); BILIRUBIN,TOTAL 1.5 mg/dL (0.2-1.3); BLOOD UREA NITROGEN 12 mg/dL (7-20); CALCIUM 9.6 mg/dL (8.4-10.2); CARBON DIOXIDE 27 mmol/L (22-30); CHLORIDE 106 mmol/L (98-107); GLUCOSE 98 mg/dL (75-110); TOTAL PROTEIN 7.9 g/dL (6.3-8.2)
[2019-03-27 09:45] VITALS: BP 127/82
== END 2019-03-27 09:47 | disposition home or self-care (01) ==
LOC: ER 05:53
DX: K52.1 Toxic gastroenteritis and colitis (principal); T47.4X5A Adverse effect of other laxatives, initial encounter; Y92.9 Unspecified place or not applicable; R19.7 Diarrhea, unspecified; R53.1 Weakness; R53.81 Other malaise
CPT/HCPCS: 99283; 96360; 36415; 84703; 85025; 80053; 81001; 74018; J7030

== ENCOUNTER 2020-06-17 07:49 | Emergency (ER) | payer MEDICAID ==
[2020-06-17] MEDS ORDERED: DEXAMETHASONE 4 MG TABLET PO ONE (08:40)
--- NOTE | 2020-06-17 08:43 | ER Document Report ---
ED ENT - General Chief Complaint: Sore Throat Stated Complaint: SORE THROAT,BODY ACHES Time Seen by Provider: 06/17/20 08:12 Notes: HPI: 40-year-old female presents today stating her son had a positive coronavirus exposure while 11 days ago. Patient has self started to have some body aches with some nasal congestion and a sore throat the day following. She denies any cough, fever, chest pain, abdominal pain, vomiting, or diarrhea. She was tested 8 days ago. She continues with a sore throat. She denies any other symptomatology at this time including headache. ROS: See HPI All other review of systems reviewed and otherwise negative Reviewed vital signs and nursing note as charted by RN. PHYSICAL EXAM: CONSTITUTIONAL: Alert and oriented and responds appropriately to questions. Well-appearing; well-nourished HEAD: Normocephalic; atraumatic ENT: No obvious lip, tongue, posterior pharyngeal swelling or lesions present. No erythema. Midline nonswollen uvula. No intraoral lesions or blisters present NECK: Supple without meningismus; non-tender; no cervical lymphadenopathy, no masses CARD: Regular rate and rhythm; no murmurs; symmetric distal pulses RESP: Normal chest excursion without splinting or tachypnea; breath sounds clear and equal bilaterally; no wheezes, no rhonchi, no rales ABD/GI: Normal bowel sounds; non-distended; soft, non-tender BACK: The back appears normal and is non-tender to palpation EXT: Normal ROM in all joints; non-tender to palpation; no edema SKIN: No acute lesions noted NEURO: CN 2-12 intact; 5/5 bilateral upper and lower extremity strength with sensation intact to light touch PSYCH: The patient's mood and manner are appropriate. Grooming and personal hygiene are appropriate. TRAVEL OUTSIDE OF THE [place] IN LAST 30 DAYS: No - Related Data Allergies/Adverse Reactions: No Known Allergies Allergy (Verified 01/22/19 15:34) Past Medical History - Social History Smoking Status: Never Smoker Chew tobacco use (# tins/day): No Frequency of alcohol use: None Drug Abuse: None Family History: Reviewed & Not Pertinent - Past Medical History Cardiac Medical History: Reports: Hx Hypertension Neurological Medical History: Reports: Hx Migraine Renal/ Medical History: Reports: Hx Kidney Stones. Denies: Hx Peritoneal Dialysis GI Medical History: Reports: Hx Pancreatitis Past Surgical History: Reports: Hx Section - x3, Hx Cholecystectomy, Hx Tubal Ligation - Immunizations Immunizations up to date: Yes Hx Diphtheria, Pertussis, Tetanus Vaccination: Yes Physical Exam - Vital signs Vitals: Temp Pulse Resp BP Pulse Ox 98.4 F 95 16 147/70 H 100 06/17/20 07:54 06/17/20 07:54 06/17/20 07:54 06/17/20 07:54 06/17/20 07:54 Course - Re-evaluation Re-evalutation: 06/17/20 08:41 Given the above history and physical examination in this very well-appearing female no acute distress, with vital signs as recorded, afebrile and not tachycardic or hypoxic, I will obtain a rapid strep and a coronavirus test. I will provide Decadron given the lack of diabetes with his persistent sore throat. I do believe mononucleosis currently to be unlikely. Patient has no abdominal tenderness and no lymphadenopathy. If the rapid strep is negative, we will discharge the patient home pending Covid test results with strict return precautions. - Vital Signs Vital signs: Temp Pulse Resp BP Pulse Ox 98.4 F 95 16 147/70 H 100 06/17/20 07:54 06/17/20 07:54 06/17/20 07:54 06/17/20 07:54 06/17/20 07:54 - Laboratory Results Critical Laboratory Results Reviewed: No Critical Results - Radiology Results Critical Radiology Results Reviewed: No Critical Results Discharge - Discharge Clinical Impression: Sore throat, Body aches Condition: Good Disposition: HOME, SELF-CARE Instructions: COVID-19 Guidance for Persons Under Investigation Additional Instructions: Come back immediately for any worsening sore throat, difficulty breathing or swallowing, persistent vomiting or diarrhea, chest pain, leg swelling, or any other acute problems. Please follow-up with the primary care physician for reassessment.
[2020-06-17 09:26] VITALS: BP 143/76
== END 2020-06-17 09:26 | disposition home or self-care (01) ==
LOC: ER 07:49
DX: J02.9 Acute pharyngitis, unspecified (principal); M79.10 Myalgia, unspecified site; I10 Essential (primary) hypertension; Z90.49 Acquired absence of other specified parts of digestive tract; Z20.828 Contact with and (suspected) exposure to other viral communicable diseases
CPT/HCPCS: 99283; 87070; 87880; 87635; J8540; C9803

== ENCOUNTER 2020-06-24 07:16 | Emergency (ER) | payer SELFPAY ==
--- NOTE | 2020-06-24 08:41 | RADIOLOGY REPORT (SQ) ---
EXAM DESCRIPTION: CHEST SINGLE VIEW IMAGES COMPLETED DATE/TIME: 06/24/2020 8:30 am REASON FOR STUDY: cough COMPARISON: 06/28/2018 EXAM PARAMETERS: NUMBER OF VIEWS: One view. TECHNIQUE: Single frontal radiographic view of the chest acquired. RADIATION DOSE: NA LIMITATIONS: None. FINDINGS: LUNGS AND PLEURA: No opacities, masses or pneumothorax. No pleural effusion. MEDIASTINUM AND HILAR STRUCTURES: No masses. Contour normal. HEART AND VASCULAR STRUCTURES: Heart normal in size. Normal vasculature. BONES: No acute findings. HARDWARE: None in the chest. OTHER: No other significant finding. IMPRESSION: NO ACUTE RADIOGRAPHIC FINDING IN THE CHEST. TECHNICAL DOCUMENTATION: JOB ID: [id number] 2010 [employer]- All Rights Reserved Reading location - IP/workstation name: [email or web address]
--- NOTE | 2020-06-24 08:54 | ER Document Report ---
ED General - General Chief Complaint: Sore Throat Stated Complaint: SORE THROAT/DIARRHEA Time Seen by Provider: 06/24/20 07:57 Primary Care Provider: [facility] [Provider Group] - Follow up as needed Notes: Patient is a 40-year-old female that presents to the emergency department for chief complaint of sore throat, body aches. Patient states that she has been having symptoms of sore throat, body aches and laryngitis over the past 2 weeks, and states is not getting much better. She was seen in the emergency department previously was tested for COVID-19 and was negative, as well as her strep testing. She states overall she does not feeling much better so she decided come back to the emergency department. Denies any fevers, chills, cough, nausea, vomiting or abdominal pain at this time. She states she occasionally was having some diarrhea associated with this. Past Medical History: denies chronic medical conditions Past Surgical History: reviewed, not pertinent Family History: Reviewed and noncontributory for presenting illness Allergies: Reviewed, see documented allergy list. REVIEW OF SYSTEMS: Other than noted above, the 12 point review of systems was reviewed with the patient and were negative, all pertinent findings are included in the HPI. PHYSICAL EXAMINATION: Vital signs reviewed, nursing noted reviewed. GENERAL: Well-appearing, well-nourished and in no acute distress. HEAD: Atraumatic, normocephalic. EYES: Eyes appear normal, sclera anicteric, conjunctiva are normal. ENT: Moist mucous membranes. Pharynx appears normal. Voice consistent with laryngitis. NECK: Normal range of motion, supple without lymphadenopathy LUNGS: Breath sounds clear to auscultation bilaterally and equal. No wheezes rales or rhonchi. HEART: Regular rate and rhythm without murmurs EXTREMITIES: Nontender, good range of motion, no pitting or edema. NEUROLOGICAL: No focal neurological deficits. Moves all extremities spontaneously Motor and sensory grossly intact on exam. PSYCH: Normal mood, normal affect. SKIN: Warm, Dry, normal turgor, no rashes or lesions noted on exposed skin TRAVEL OUTSIDE OF THE [place] IN LAST 30 DAYS: No - Related Data Allergies/Adverse Reactions: No Known Allergies Allergy (Verified 01/22/19 15:34) Past Medical History - Social History Smoking Status: Former Smoker Chew tobacco use (# tins/day): No Frequency of alcohol use: None Drug Abuse: None Family History: Reviewed & Not Pertinent - Past Medical History Cardiac Medical History: Reports: Hx Hypertension Neurological Medical History: Reports: Hx Migraine Renal/ Medical History: Reports: Hx Kidney Stones. Denies: Hx Peritoneal Dialysis GI Medical History: Reports: Hx Pancreatitis Past Surgical History: Reports: Hx Section - x3, Hx Cholecystectomy, Hx Tubal Ligation - Immunizations Immunizations up to date: Yes Hx Diphtheria, Pertussis, Tetanus Vaccination: Yes Physical Exam - Vital signs Vitals: Temp Pulse Resp BP Pulse Ox 98.1 F 99 14 133/84 H 98 06/24/20 07:19 06/24/20 07:19 06/24/20 07:19 06/24/20 07:19 06/24/20 07:19 Course - Re-evaluation Re-evalutation: Patient seen and examined, the signs reviewed, exam patient overall appears well, she did have laryngitis, but her posterior pharynx appeared unremarkable no cervical lymphadenopathy, lungs are clear, chest x-ray obtained was negative, flu testing was obtained and was negative, will rescreen for COVID-19, patient be provided Decadron and advised follow-up with primary care. Patient understood and agreed and was discharged home. - Vital Signs Vital signs: Temp Pulse Resp BP Pulse Ox 98.3 F 90 16 136/82 H 98 06/24/20 09:27 06/24/20 09:27 06/24/20 09:27 06/24/20 09:27 06/24/20 09:27 - Laboratory Results Critical Laboratory Results Reviewed: No Critical Results - Radiology Results Critical Radiology Results Reviewed: No Critical Results Discharge - Discharge Clinical Impression: Viral syndrome Condition: Stable Disposition: HOME, SELF-CARE Instructions: Viral Syndrome ([facility]) Prescriptions: Dexamethasone [Decadron 4 Mg Tablet] 4 mg PO DAILY #4 tablet Referrals: [facility] [Provider Group] - Follow up as needed
[2020-06-24 08:57] LABS: A TYPE INFLUENZA AG NEGATIVE (NEGATIVE); B INFLUENZA AG NEGATIVE (NEGATIVE)
[2020-06-24] MEDS ORDERED: DEXAMETHASONE 4 MG TABLET PO ONE (09:02)
[2020-06-24 09:28] VITALS: BP 136/82
== END 2020-06-24 09:28 | disposition home or self-care (01) ==
LOC: ER 07:16
DX: B34.9 Viral infection, unspecified (principal); J02.9 Acute pharyngitis, unspecified; R19.7 Diarrhea, unspecified; M79.10 Myalgia, unspecified site; Z20.828 Contact with and (suspected) exposure to other viral communicable diseases; Z87.891 Personal history of nicotine dependence; I10 Essential (primary) hypertension
CPT/HCPCS: 99284; 87635; 87804; 71045; J8540; C9803